=== PATIENT | female | born 1955 | race Caucasian/White ===

== ENCOUNTER → 2019-10-23 13:27 | Outpatient (BNVA) | payer MEDICARE, OTHER, SELFPAY | PROVIDERS: Referring Provider Nurse Practitioner Family; Visit Provider Obstetrics & Gynecology Female Pelvic Medicine and Reconstructive Surgery | DX: Z01.89 Encounter for other specified special examinations (principal) ==

== ENCOUNTER 2019-11-02 05:50 | Day surgery (SDC) | payer MEDICARE, OTHER, SELFPAY ==
[2019-11-01 11:21] VITALS: BMI 23.3
[2019-11-01 13:03] LABS: Basophils # 0.1 10^3/uL (0.0-0.1); Basophils % 0.6 %; Eosinophils # 0.1 10^3/uL (0.0-0.8); Hematocrit 40.7 % (37.0-47.0); Lymphocytes # 1.7 10^3/uL (0.8-4.8); Lymphocytes % 18.4 %; Mean Corpuscular HGB Conc 31.9 g/dL (30.0-36.0); Mean Corpuscular Hemoglobin 30.7 pg (28.0-34.0); Mean Platelet Volume 10.3 fL (7.4-10.4); Monocytes # 0.6 10^3/uL (0.2-0.9); Monocytes % 6.5 %; Neutrophils # 6.6 10^3/uL (1.8-7.7); Neutrophils % 73.3 %; Nucleated Red Blood Cells % 0 %; Platelet Count 336 10^3/cmm (130-400); Red Blood Count 4.24 10^6/uL (4.1-5.3); Red Cell Distribution Width 14.5 % (12.1-15.1)
--- NOTE | 2019-11-01 13:03 | P.ANESASSM_ITS ---
Pre-Anesthetic Assessment Pre-Anesthetic Assessment: Height/Weight: Height 1.65 m Weight 63.503 kg Preop Diagnosis: postmenopausal bleeding Proposed Procedure: Operation Date: 11/02/19 07:00 Proposed Procedures p Hysteroscopy 65187 01292 N95.0(Not Applicable) - Silverio Morse DO s Dilation And Curettage (D&C)(Not Applicable) - Silverio Morse DO Was Beta John taken within 24 hours: N/A Social: Social History: No alcohol and No tobacco Exam: Pre-Anes Outpt Exam: alert, oriented x 3, clear to auscultation bilaterally and regular rate & rhythm Airway: Submandibular: WNL Cervical ROM: WNL MP: 2 Dentition: Full Pulmonary: Pulmonary: None reported CV/HEM: CV/HEM: None reported : : None reported Hepatic: Hepatic: None reported GI: GI: None reported Metabolic: Metabolic: None reported Musc/skel: Comments: Arthritis Neuropsych: Neuropsych: None reported Anesthetic Plan: ASA status: 2 Anesthesia: General Risk of > 500 ml blood loss (7ml/kg in children): No PFSH Anesthesia PFSH: Social History Smoking and tobacco status: never smoked Alcohol intake: never Marital status: Data Anesthesia CBC & Chem 7: 11/01/19 11:40 Other Labs: Laboratory Results - last 48 hr 11/01/19 11:40 WBC 9.0 RBC 4.24 Hgb 13.0 Hct 40.7 MCV 96.0 MCH 30.7 MCHC 31.9 RDW 14.5 Plt Count 336 MPV 10.3 Neut % (Auto) 73.3 Lymph % (Auto) 18.4 [place] % (Auto) 6.5 Eos % (Auto) 1.0 Baso % (Auto) 0.6 Neut # (Auto) 6.6 Lymph # (Auto) 1.7 [place] # (Auto) 0.6 Eos # (Auto) 0.1 Baso # (Auto) 0.1 Nucleated RBC % (auto) 0 Nucleated RBCs # 0.0 Cardiac Studies: No Data to Display
[2019-11-01 13:17] LABS: Anion Gap 14.8 (5-19); Blood Urea Nitrogen 16 mg/dL (8-23); Calcium 9.9 mg/dL (8.5-10.5); Carbon Dioxide 27 mmol/L (22-29); Chloride 103 mmol/L (98-107); Glomerular Filtration Rate 62.6 mL/min (90-130); Glucose 86 mg/dL (65-115); Osmolality Calculated 288 mOsm/kg (285-295); Potassium 3.8 mmol/L (3.5-5.1); Sodium 141 mmol/L (136-145)
[2019-11-02] VITALS (8 sets, daily range): BP systolic 150–184; BP diastolic 79–118; PULSE 56–68; RESP 12–18; TEMP 36.4–37.5; O2SAT 96–100
--- NOTE | 2019-11-02 06:34 | P.ANESUD_ITS ---
Pre-Anesthetic Update Pre-Anesthetic Assessment: Date of Surgery/Procedure: 11/02/19 Preop Rochelle gnosis: postmenopausal bleeding Proposed Procedure: Operation Date: 11/02/19 07:00 Proposed Procedures p Hysteroscopy 04723 10454 N95.0(Not Applicable) - Silverio Morse, DO s Dilation And Curettage (D&C)(Not Applicable) - Silverio Morse, DO Any changes to Pre-Anesthetic Assessment?: No Last Intake: Intake Last Liquid Date 11/01/19 Last Solid Date 11/01/19 Labs Last 48hrs: Laboratory Results - last 48 hr 11/01/19 11/01/19 11:40 11:40 WBC 9.0 RBC 4.24 Hgb 13.0 Hct 40.7 MCV 96.0 MCH 30.7 MCHC 31.9 RDW 14.5 Plt Count 336 MPV 10.3 Neut % (Auto) 73.3 Lymph % (Auto) 18.4 [place] % (Auto) 6.5 Eos % (Auto) 1.0 Baso % (Auto) 0.6 Neut # (Auto) 6.6 Lymph # (Auto) 1.7 [place] # (Auto) 0.6 Eos # (Auto) 0.1 Baso # (Auto) 0.1 Nucleated RBC % (a uto) 0 Nucleated RBCs # 0.0 Sodium 141 Potassium 3.8 Chloride 103 Carbon Dioxide 27 Anion Gap 14.8 BUN 16 Creatinine 0.9 GFR Calculation 62.6 L Glucose 86 Calculated Osmolal ity 288 Calcium 9.9 Vitals: Temperature 99.5 F 11/02/19 06:04 Temperature Source Temporal Artery S can 11/02/19 06:04 Pulse Rate 68 11/02/19 06:04 Pulse Rhythm 11/02/19 06:09 Pulse Strength 3+ Normal 11/02/19 06:09 Respiratory Rate 18 11/02/19 06:04 Blood Pressure 170/118 11/02/19 06:04 Blood Pressure Melanie n 135 11/02/19 06:04 Pulse Oximetry 98 11/02/19 06:04 Oxygen Delivery Me thod 11/02/19 06:09 Exam: Pre-Anes Outpt Exam: alert, oriented x 3, clear to auscultation bilaterally and regular rate & rhythm Other Pertinent Information: Other Pertinent Information: Hypertensive this morning 180/100--isolated incidence according to patient, not taking BP meds. Cardiac Studies: No Data to Display
[2019-11-02] MEDS: lactated ringers 1,000 ML 999 ML IV (06:46)
[2019-11-02] MEDS: CELEcoxib 200 mg Capsule 400 MG PO (06:47)
[2019-11-02] MEDS: gabapentin 300 mg Capsule PO (06:48)
--- NOTE | 2019-11-02 06:53 | P.HPUD_ITS ---
Surgery/Procedure H&P Update DATE OF PROCEDURE: November 02, 2019 DATE H&P PERFORMED: 10/30/19 PREOP DIAGNOSIS: postmenopausal bleeding PLANNED PROCEDURE: Operation Date: 11/02/19 07:00 Proposed Procedures p Hysteroscopy 58430 58372 N95.0(Not Applicable) - DO antione Mckinnon Dilation And Curettage (D&C)(Not Applicable) - Silverio Morse DO
--- NOTE | 2019-11-02 06:53 | W.PM.OPSUD ---
Surgery/Procedure H&P Update DATE OF PROCEDURE: November 02, 2019 DATE H&P PERFORMED: 10/30/19 PREOP DIAGNOSIS: postmenopausal bleeding PLANNED PROCEDURE: Operation Date: 11/02/19 07:00 Proposed Procedures p Hysteroscopy 20200 95300 N95.0(Not Applicable) - DO natione Mckinnon Dilation And Curettage (D&C)(Not Applicable) - Silverio Morse DO
[2019-11-02] MEDS: midazolam 1 mg/mL INJ 2 mL 2 MG IVP (06:55)
--- NOTE | 2019-11-02 07:46 | SUR.PHASEI ---
8605 PATIENT TO PACU AT THIS TIME. RR EVEN AND UNLABORED. ORAL AIRWAY IN PLACE. PATIENT NOTED TO BE SLEEPING.
--- NOTE | 2019-11-02 07:59 | P.OP_ITS ---
Operative Report Date of procedure: November 02, 2019 Pre-op Diagnosis: postmenopausal bleeding Post-op diagnosis: same Post-op Diagnosis: endometrial polyp Post-op Findings: 2 cm endometrial polyp, appears benign. atrophic endometrium Procedure Done: hysperoscopy, diagnostic endometrial polypectomy vian myosure fractional d&C Specimens removed/disposition: ECC Endometrial currettings, endomerial polyp Surgeon: Silverio Morse Principal Account Clerk: Jas Ruffin MS 3 Anesthesia: General Estimated blood loss (mL): 10 IV fluids (mL): 500 Urine output (mL): 250 Complications: none Findings: uterus sounds 7 cm, rretroflexed. benign appearing endometrial polyp from left lateral sidewall. atrophic endometrium Condition: stable Disposition: PACU Brief History: 64-year-old multiparous female with recent history of endometrial bleeding described as light. Admitted for hysteroscopy D&C possible polypectomy. Procedure: Patient was identified counseled taken to the operating room and [facility]. She did receive IV antibiotics for prophylaxis. In the operating room underwent general laryngeal mask anesthesia placed in the dorsolithotomy position for operative hysteroscopy. Exam under anesthesia was performed uterus was noted to be retroflexed small mobile. No adnexal masses noted. Timeout was performed. Perineum vagina prepped and draped in usual manner bladder underwent In-N-Out catheterization for 250 cc of clear urine. Weighted speculum was placed in the vagina cervix was then 5 the anterior lip of the cervix grasped with a tenaculum. ECC was performed and specimen sent. At this time the cervix was gently dilated with Hegar dilators to about 8 mm it was noted to be retroflexed. Initially the diagnostic hysteroscope and using saline distention media hysteroscopy was performed with the above findings. There was an approximate 2 cm benign- appearing polyp from the left lateral sidewall. At this time the mild sure was readied and then using the [place] sure device under direct observation a polyp was removed without difficulty. Photodocumentation was obtained. Once the polyp the been removed the uterine cavity was curettaged with sharp curette minimal tissue recovered sent for specimen. At this point time all instruments removed patient was allowed to recover awaken sent to the recovery room good condition she will be discharged today was to be sent home on Tylenol and ibuprofen as needed for discomfort supplemented with oxycodone as needed. Plan follow-up with me in 2 weeks. Is of note patient did have elevated blood pressures noted preop and an episode of bigeminy in the operating room we will have her follow-up with her PCP to further evaluate cardiac status. At this time pathology report is pending we will follow-up with patient. Fluid absorption proximally 150 cc measured. No complication
--- NOTE | 2019-11-02 08:01 | SUR.PHASEI ---
0755 ORAL AIRWAY REMOVED.
--- NOTE | 2019-11-02 08:09 | SUR.PHASEI ---
0806 PATIENT TO OPS AT THIS TIME. NO DISTRESS. MILD PAIN
== END 2019-11-02 09:05 | disposition home or self-care (01) ==
LOC: OR 13:55
PROVIDERS: PCP Nurse Practitioner Family; Visit Provider Obstetrics & Gynecology Female Pelvic Medicine and Reconstructive Surgery
PROC: 0UJD8ZZ Inspection of Uterus and Cervix, Via Natural or Artificial Opening Endoscopic (ICD-10-PCS; CPT 58555; principal; 2019-11-02 07:00)
PROC: (CPT 58120; 2019-11-02 07:00)
PROC: 0UDB8ZZ Extraction of Endometrium, Via Natural or Artificial Opening Endoscopic (ICD-10-PCS; CPT 58558; 2019-11-02 07:00)
DX: N95.0 Postmenopausal bleeding (principal); N84.0 Polyp of corpus uteri; Z82.49 Family history of ischemic heart disease and other diseases of the circulatory system
CPT/HCPCS: 58558; 12345; 80048; 85025; 88305; 96365; 96374; J0131; J0690; J1100; J2001; J2250; J2370; J2405; J2704; J3010

== ENCOUNTER → 2021-06-20 10:40 | Outpatient (BNVA) | payer MEDICARE, OTHER, SELFPAY | PROVIDERS: PCP Nurse Practitioner Family; Visit Provider Otolaryngology | DX: K13.79 Other lesions of oral mucosa (principal) | CPT/HCPCS: 88304; 88307 ==

== ENCOUNTER → 2024-05-23 08:02 | Outpatient (BNVA) | payer MEDICARE, OTHER, SELFPAY | PROVIDERS: PCP Nurse Practitioner Family; Visit Provider Specialist | DX: I63.89 Other cerebral infarction (principal); Z79.01 Long term (current) use of anticoagulants | CPT/HCPCS: 96116; 99204; 99205 ==

== ENCOUNTER 2024-06-14 08:34 | Outpatient (CLI) | payer MEDICARE, OTHER, SELFPAY ==
--- NOTE | 2024-06-14 09:15 | MR_ITS ---
WS: [id number] MRI BRAIN WITHOUT CONTRAST HISTORY: I63.89 - Other cerebral infarction COMPARISON: None available. TECHNIQUE: Diffusion imaging, multiplanar T1, T2 and FLAIR imaging obtained. Acute diffusion abnormality in the LEFT natalie consistent with an acute stroke. There is an additional tiny focus of increased signal on the diffusion imaging in the subcortical medial RIGHT frontal white matter which is likely an acute infarct also. There does appear to be low signal on the ADC map in t his region. Otherwise there is advanced patchy and confluent white matter disease throughout the cerebrum. Small lacunar infarct in the LEFT connor radiata and external capsule. No hemorrhage. Mild diffuse atrophy. No significant hippocampal atrophy. No large territory infarct. No midline shift or mass effect. Ventricles and extra-axial spaces are normal. No inferior displacement of cerebellar tonsils. The sella turcica and pituitary gland are unremarkabl e. Dural venous sinuses and [place] demonstrate no abnormality on this unenhanced studies. Paranasal sinuses: Clear. Mastoid air cells: Normal. Calvarium and scalp: Intact. MR/MR head wo con* [id number] IMPRESSION: 1. Acute LEFT natalie lacunar infarct without hemorrhage. 2. Additional very tiny acute infarct in the RIGHT medial frontal subcortical white matter. 3. Advanced chronic small vessel ischemic disease throughout the white matter with a few small scattered lacunar infarcts. 4. Mild diffuse atrophy.
--- NOTE | 2024-06-14 10:00 | MR_ITS ---
WS: [id number] MRA ANGIOGRAPHY [place] HISTORY: I63.89 - Other cerebral infarction COMPARISON: None available. TECHNIQUE: 3-D MR angiography is performed of the [place] of [place]. All images are reviewed including source images. Very small caliber distal LEFT vertebral artery but it does appear to be patent. Normal dominant RIGH T vertebral artery. Very minimal narrowing of the central basilar artery. Normal intracranial carotid arteries. Middle cerebral arteries are patent. Smaller caliber of vessels involving the LEFT M2 and M3 segments. There is no occlusion. Anterior cerebral arteries are normal caliber. No aneurysm. MR/MR angio head wo con [id number] IMPRESSION: 1. No intracranial aneurysms. 2. Very small caliber but patent distal LEFT vertebral artery. 3. Smaller caliber LEFT M2 and M3 segments but they are patent. Mild paucity o f vessels in the distal LEFT MCA territory.
== END 2024-06-14 08:35 | disposition home or self-care (01) ==
LOC: RAD 08:36
PROVIDERS: PCP Nurse Practitioner Family; Visit Provider Specialist
DX: I63.81 Other cerebral infarction due to occlusion or stenosis of small artery (principal); I61.0 Nontraumatic intracerebral hemorrhage in hemisphere, subcortical; I67.82 Cerebral ischemia
CPT/HCPCS: 70544; 70551

== ENCOUNTER 2024-07-14 09:35 | Outpatient (CLI) | payer MEDICARE, OTHER, SELFPAY ==
--- NOTE | 2024-07-14 10:00 | USCV_ITS ---
Nadia Mendez Age: 69 Gender: F : 1955 Exam Date: 07/14/2024 10:07 Ordering Phys: Milana Santillan MD Technologist: CT [place] [facility] [place] Indication: BP: 186 / 118 HR: 98 Rhythm: Sinus Technical Quality: Adequate MEASUREMENTS (Male / Female) Normal Values 2D ECHO LVOT Diameter 2.0 cm LV Ejection Fraction MOD 4C 61.3 % LV Ejection Fraction MOD 2C 60.5 % LV Ejection Fraction 2C AL 61.6 % LA Diameter 2.9 cm RA Systolic Volume 4C AL 30.0 ml RA Systolic Volume 4C MOD 29.6 ml LA Sys Volume AL 43.4 cm cubed LA Sys Volume Index AL 25.7 cm cubed/m squared Aorta at Sinotubular Diameter 2.3 cm IVC Diameter 1.6 cm M-MODE LA Ao Ratio MM 1.4 AV Cusp Separation MM 2.1 cm DOPPLER AV Peak Velocity 154.0 cm/s AV Area Cont Eq vti 2.5 cm squared AV Area Cont Eq pk 1.9 cm squared MV Peak Velocity 114.0 cm/s MV Area PHT 2.8 cm squared Mitral E to A Ratio 0.8 TV Peak Velocity 155.0 cm/s TR Peak Velocity 178.0 cm/s TR Peak Gradient 12.7 mmHg TV Peak E Velocity 75.0 cm/s Right Atrial Pressure 3.0 mmHg Pulmonary Artery Systolic Pressu 15.7 mmHg PV Peak Velocity 98.0 cm/s FINDINGS Left Ventricle Left ventricle is normal in size. LV systolic function is normal with EF of 55 to 60%. No regional wall motion abnormalities are seen. Grade 1 diastolic dysfunction Right Ventricle Normal in size and function. Right Atrium Normal in size. Left Atrium Normal in size. Mitral Valve Mild mitral annular calcification. Mild mitral regurgitation. Aortic Valve Structurally normal aortic valve. No significant stenosis or regurgitation. Tricuspid Valve Mild tricuspid regurgitation. Pulmonary artery systolic pressure is normal. Pulmonic Valve Mild pulmonic regurgitation. Pericardium Normal Aorta Normal in size IVC Appears to be normal. CONCLUSIONS LV systolic function is normal with EF of 55 to 60%. Grade 1 diastolic dysfunction. Mild mitral regurgitation. Mild tricuspid regurgitation Mild pulmonic regurgitation No comparison studies are available. Collins Sawyer MD (Electronically Signed) Final Date: 16 July 2024 14:12 S
== END 2024-07-14 09:36 | disposition home or self-care (01) ==
LOC: RAD 09:36
PROVIDERS: PCP Nurse Practitioner Family; Visit Provider Specialist
DX: I63.89 Other cerebral infarction (principal); I50.30 Unspecified diastolic (congestive) heart failure
CPT/HCPCS: 93306

== ENCOUNTER → 2024-08-31 07:57 | Outpatient (BNVA) | payer MEDICARE, OTHER, SELFPAY | PROVIDERS: PCP Nurse Practitioner Family; Visit Provider Specialist | DX: I63.89 Other cerebral infarction (principal); R03.0 Elevated blood-pressure reading, without diagnosis of hypertension; I20.0 Unstable angina; G37.9 Demyelinating disease of central nervous system, unspecified; K13.4 Granuloma and granuloma-like lesions of oral mucosa; M19.90 Unspecified osteoarthritis, unspecified site | CPT/HCPCS: 99215 ==

== ENCOUNTER → 2024-09-06 08:00 | Outpatient (BNVA) | payer MEDICARE, OTHER, SELFPAY | PROVIDERS: PCP Nurse Practitioner Family; Visit Provider Specialist | DX: I63.89 Other cerebral infarction (principal); G37.9 Demyelinating disease of central nervous system, unspecified; R03.0 Elevated blood-pressure reading, without diagnosis of hypertension; I20.0 Unstable angina; K13.4 Granuloma and granuloma-like lesions of oral mucosa; M19.90 Unspecified osteoarthritis, unspecified site | CPT/HCPCS: 36415; 62270; 80503; 82040; 82042; 82784; 82945; 83916; 84157; 86592; 86617; 87070; 87075; 87205; 89050; 99213 ==

== ENCOUNTER 2024-09-07 08:47 | Outpatient (CLI) | payer MEDICARE, OTHER, SELFPAY ==
--- NOTE | 2024-09-07 | ECG_ITS ---
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 The perfusion scan will be documented separately. DATA: Baseline heart rate was 102 beats per minute. Baseline blood pressure was 134/100 millimeters of mercury. Target heart rate was 149. Maximum heart rate achieved was 115. which was 77 of the predicted target heart rate. Maximum blood pressure was 134/100 millimeters of mercury. The reason for ending the test was completion of the protocol. The patient did not experience any symptoms. ELECTROCARDIOGRAM: BASELINE: Sinus rhythm. Normal axis. 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 No arrhythmia noted. EXERCISE: After Lexiscan injection, inferolateral moderate ST depression suggestive of ischemia noted Recovery: Inferolateral ST depression persisted 10 minutes CONCLUSION: Please note due to baseline abnormality of the EKG specificity and sensitivity of the EKG portion of LexiScan MIBI stress test will be low 1. EKG is suggestive of ischemia 2. Lexiscan injection unremarkable. 3. Lexiscan will be reported separately Electronically Signed On 09-25-2024 22:17:38 NATIONAL BUSINESS DIRECTOR by DUNG SEN [email or web address]
[2024-09-07 09:03] VITALS: BMI 24.4
--- NOTE | 2024-09-07 10:03 | NMCV_ITS ---
NM oren perf SPECT r/s* [id number] Nadia Mendez Age: 69 Gender: F : 1955 Exam Date: 09/07/2024 10:11 Ordering Phys: Milana Santillan MD Technologist: RADHA Coto Exam Location: [facility] Indications: cp STRESS TEST [facility] IMAGE PROTOCOL Rest/Stress 1 Radiopharmaceutical Dose (mCi) Administration Site Administered by Rest: Tc-99m 10.9 IV Vanessa Menard, SYSTEMS TRAINER Sestamibi Stress:Tc-99m 33 IV Vanessa Garciae, SYSTEMS TRAINER Sestamibi Rest: 07-Sep-2024 60 Discovery 630 Stress: 07-Sep-2024 30 Discovery 630 Images obtained in supine and prone position. Supine position only as patient was unable to lay prone. SPECT RESULTS Technical Quality: Good Raw Data Analysis: Normal Image Corrections: No attenuation or motion correction applied Summed Stress Score: 23 Summed Rest Score: 20 Summed Difference Score: 4 PERFUSION FINDINGS Large area of fixed perfusion defect noted in mid to distal anterior, basal to mid inferior and basal to distal inferoseptal wall suggestive of old myocardial infarction versus scarring. No new ischemia noted. FUNCTIONAL RESULTS (calculated via Gated SPECT) Stress Image LV EF (%): 11 Stress EDV (mL):222 TID: 1.12 Stress ESV (mL):197 FUNCTIONAL FINDINGS: Severely depressed left ventricular ejection fraction, mid to distal anterior apical and inferior wall akinesis. There is severely dilated left ventricle. Left ventricle is severely dilated. IMPRESSIONS Large area of fixed perfusion defect noted in mid to distal anterior, basal to mid inferior and basal to distal inferoseptal wall suggestive of old myocardial infarction versus scarring. No new ischemia noted. Dayo Garcia MD (Electronically Signed) Final Date: 07 September 2024 15:49 S
[2024-09-07] MEDS: regadenoson 0.4 Mg/5 ml Syringe IVP (10:53)
[2024-09-07] MEDS: aminophylline 25 mg/mL SDV 20 mL IVP (11:07)
[2024-09-07 11:10] VITALS: BP 116/60; PULSE 95
== END 2024-09-07 08:48 | disposition home or self-care (01) ==
LOC: CDL 08:48
PROVIDERS: PCP Nurse Practitioner Family; Visit Provider Specialist
DX: R07.9 Chest pain, unspecified (principal); I51.7 Cardiomegaly; R93.1 Abnormal findings on diagnostic imaging of heart and coronary circulation
CPT/HCPCS: 36415; 78452; 93017; 96374; 96375; A9500; J0280; J2785

== ENCOUNTER 2024-09-08 14:01 | Inpatient (IN) | payer MEDICARE, OTHER, SELFPAY ==
[2024-09-08] VITALS (11 sets, daily range): BP systolic 110–134; BP diastolic 75–95; PULSE 93–104; RESP 17–29; TEMP 36.8–36.9; O2SAT 92–94; BMI 25.4; BMI 26.1
--- NOTE | 2024-09-08 14:06 | ECG_ITS ---
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
--- NOTE | 2024-09-08 16:16 | XRR_ITS ---
PROCEDURE INFORMATION: Exam: XR Chest Exam date and time: 09/08/2024 6:03 PM Age: 69 years old Clinical indication: Shortness of breath TECHNIQUE: Imaging protocol: Radiologic exam of the chest. Views: 1 view. COMPARISON: No relevant prior studies available. FINDINGS: Lungs: Mild bibasilar atelectasis. Pleural spaces: Small to moderate left and small right pleural effusions. No pneumothorax. Heart/Mediastinum: Partially obscured cardiac silhouette. Vasculature: Aortic arch atherosclerotic calcification. Bones/joints: Degenerative change along the spine and acromioclavicular joints. XR/XR chest 1V portable [id number] IMPRESSION: Qlly-iv-aqdhxlcw bdke-ymleggn-kmgk-right pleural effusions.
[2024-09-08 17:34] LABS: Basophils % 0.2 %; Eosinophils % 0.2 %; Hematocrit 39.2 % (36-47); Lymphocytes # 1.5 10^3/uL (0.8-4.8); Lymphocytes % 11.9 %; Mean Corpuscular HGB Conc 33.7 g/dL (30-55); Mean Corpuscular Hemoglobin 31.1 pg (27-33); Mean Corpuscular Volume 92.5 fl (85-98); Monocytes # 0.7 10^3/uL (0.2-0.9); Monocytes % 5.1 %; Neutrophils # 10.38 10^3/uL (1.8-7.7); Neutrophils % 82.3 %; Nucleated Red Blood Cells % 0 %; Platelet Count 326 10^3/cmm (157-399); Red Blood Count 4.24 10^6/uL (3.85-5.65); Red Cell Distribution Width 14.6 % (12.1-15.1); White Blood Count 12.63 10^3/uL (3.29-11.43)
--- NOTE | 2024-09-08 17:37 | ECG_ITS ---
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: : 1955 Requested By: Hiwot Burns Order Number: [id number] Reading MD: DUNG SEN Measurements Intervals [place] Rate: 102 P: 8 CT: 163 QRS: -38 QRSD: 99 T: 156 QT: 342 QTc: 446 Interpretive Statements SINUS TACHYCARDIA LEFT AXIS DEVIATION [QRS AXIS < -30] LEFT VENTRICULAR HYPERTROPHY AND ST-T CHANGE [VOLTAGE CRITERIA PLUS ST/T ABNORMALITY] POSSIBLE ANTERIOR MYOCARDIAL INFARCTION , OF INDETERMINATE AGE [30 ms Q WAVE IN V3/V4, OR R < 0.2 mV IN V4] Compared to ECG 09/08/2024 14:06:55 Left ventricular hypertrophy now present ST (T wave) deviation now present Myocardial infarct finding still present Electronically Signed On 09-08-2024 23:19:25 MOLDING UTILITY WORKER by DUNG SEN [email or web address]
--- NOTE | 2024-09-08 17:37 | W.ED.SOB ---
HPI - SOB/Dyspnea General: Chief Complaint: Shortness of Breath/Dyspnea Stated Complaint: shortness of breath /sent by dr. Isela Xavier / Time Seen by Provider: 09/08/24 17:34 History of Present Illness: HPI Narrative: 69-year-old female with history of stroke in the past who stopped taking her medications because they made her feel bad. She says she would rather take homeopathic meds. However over the last month or so she has had increasing shortness of breath. Increasing orthopnea. She reports abdominal swelling without abdominal pain. She has been having tightness in her chest. She has had some cough. But no fevers. No altered mental status. No focal motor deficits. Related Data Home Medications Medication Instructions Recorded Confirmed ascorbic acid (vitamin C) 500 mg 500 mg PO DAILY 10/23/19 09/06/24 capsule cholecalciferol (vitamin D3) 250 20,000 unit PO DAILY 10/23/19 09/06/24 mcg (10,000 unit) capsule cyanocobalamin (vitamin B-12) 5,000 mcg PO DAILY 10/23/19 09/06/24 5,000 mcg capsule lactobacillus combination no.4 3 3,000 mmu cells PO DAILY 11/01/19 09/06/24 billion cell capsule (Probiotic) HRT-compounted sublingual 05/23/24 09/06/24 Vitamin K2 PO 08/31/24 09/06/24 vitamin E mixed PO 08/31/24 09/06/24 Allergies Allergy/AdvReac Type Severity Reaction Status Date / Time No Known Allergies Allergy Verified 09/07/24 09:04 Review of Systems Narrative: Constitutional symptoms: Negative except as documented in HPI. Skin symptoms: Negative except as documented in HPI. Eye symptoms: Negative except as documented in HPI. ENMT symptoms: Negative except as documented in HPI. Respiratory symptoms: Negative except as documented in HPI. Cardiovascular symptoms: Negative except as documented in HPI. Gastrointestinal symptoms: Negative except as documented in HPI. Genitourinary symptoms: Negative except as documented in HPI. Musculoskeletal symptoms: Negative except as documented in HPI. Neurologic symptoms: Negative except as documented in HPI. Psychiatric symptoms: Negative except as documented in HPI. Endocrine symptoms: Negative except as documented in HPI. 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 Skin: Warm, dry. Head: Normocephalic, atraumatic. Neck: Supple, trachea midline. Eye: Extraocular movements are intact. Ears, nose, mouth and throat: mucosa moist. Cardiovascular: Regular, Normal peripheral perfusion. Respiratory: Lungs are clear to auscultation, respirations are non-labored, breath sounds are equal, Symmetrical chest wall expansion. Gastrointestinal: Soft, Nontender, Non distended Musculoskeletal: Normal ROM, no deformity. Neurological: Alert and oriented, No focal neurological deficit observed. Psychiatric: Cooperative, appropriate mood & affect. Course Vital Signs: Vital signs: Vital Signs Temperature 98.4 F 09/08/24 14:10 Pulse Rate 98 09/08/24 19:18 Respiratory Rate 17 09/08/24 14:10 Blood Pressure 127/95 09/08/24 19:18 Pulse Oximetry 92 09/08/24 19:18 Oxygen Delivery Me thod Room Air 09/08/24 19:18 MDM - SOB/Dyspnea Medical Decision Making Differential diagnosis for patient with shortness of breath includes but is not limited to and based on the above HPI, review of systems and physical exam: Pneumonia. Bronchitis. Asthma or COPD with acute exacerbation. Acute coronary syndrome / [place]. Pulmonary embolism. Anxiety. Congestive heart failure. Viral infections including influenza and Covid-19. Atrial fibrillation. Anxiety. Pleural effusion. Pneumothorax. Orders placed to evaluate differential diagnosis based on the above differential, HPI and physical exam EKG: Time 1737. Rate 102. Sinus tachycardia. Diffuse ST elevation without depression. LVH. no ectopy, normal ID & QRS intervals, This was reviewed and interpreted by myself the ER physician at 1740. I was concerned with this EKG so I have sent it to the vice president & general manager [employer] [place] on-call Dr. Garcia. He recommends continued workup. Lab Review: Laboratory results were reviewed and interpreted by myself the emergency room physician. Mild leukocytosis. No anemia. proBNP is quite elevated. Initial troponin is almost 1000. Chest x-ray: Cardiomegaly. Pulmonary edema. Pleural effusions. This was reviewed and interpreted by myself the emergency room physician. I also reviewed the radiology report. I reviewed the patient's medical record. Consultation: After results of a troponin of [address] Garcia again. He recommends diuresis with 80 mg of IV Lasix. With continued twice daily dosing. He recommends heparin drip. No Plavix at this time. Also recommends beta-virgilio. Likely low-dose metoprolol. Reexamination: Patient is not requiring oxygen. Currently not have any chest pain. No altered mental status. No focal motor deficits. No increased work of breathing while at rest. Consultation: I spoke with Dr. Bridges who is on-call for the hospitalist service who agrees to admission. Assessment and plan: Non-ST elevation myocardial infarction New onset congestive heart failure Pulmonary edema ?Heparin and heparin drip started. 80 mg IV Lasix. -I discussed the patient with the hospitalist on-call who is admitting the patient. - Discussed findings and plan with patient. Answered any questions. - All laboratory values were reviewed and interpreted personally by myself, the ER physician - All imaging was reviewed and interpreted personally by myself, the ER physician. - Evaluation and treatment of this problem were appropriate in the emergency setting Lab Data 09/08/24 17:23 09/08/24 17:23 Labs/Radiology: Radiology Impressions Chest X-Ray 09/08/24 16:16 IMPRESSION: Cmar-oc-gftedmaw nqsm-fnsgogu-wbzy-right pleural effusions. Laboratory Results WBC 12.63 10^3/uL (3.29-11.43) H 09/08/24 17: RBC 4.24 10^6/uL (3.85-5.65) 09/08/24 17:23 Hgb 13.20 g/dL (11.27-16.99) 09/08/24 17:23 Hct 39.2 % (36-47) 09/08/24 17: MCV 92.5 fl (85-98) 09/08/24 17: MCH 31.1 pg (27-33) 09/08/24 17: MCHC 33.7 g/dL (30-55) 09/08/24: RDW 14.6 % (12.1-15.1) 09/08/24: Plt Count 326 10^3/cmm (157-399) 09/08/24: MPV 10.0 fL (7.4-10.4) 09/08/24: Neut % (Auto) 82.3 % 09/08/24: Lymph % (Auto) 11.9 % 09/08/24: [place] % (Auto) 5.1 % 09/08/24: Eos % (Auto) 0.2 % 09/08/24: Baso % (Auto) 0.2 % 09/08/24 Neut # (Auto) 10.38 10^3/uL (1.8-7.7) H 09/08/24: Lymph # (Auto) 1.5 10^3/uL (0.8-4.8) 09/08/24: [place] # (Auto) 0.7 10^3/uL (0.2-0.9) 09/08/24: Eos # (Auto) 0.0 10^3/uL (0.0-0.8) 09/08/24: Baso # (Auto) 0.0 10^3/uL (0.0-0.1) 09/08/24: Nucleated RBC % (auto) 0 % 09/08/24 Nucleated RBCs # 0.0 /100WBC 09/08/24: Sodium 129 mmol/L (136-145) L 09/08/24: Potassium 4.5 mmol/L (3.5-5.1) 09/08/24: Chloride 97 mmol/L (98-107) L 09/08/24: Carbon Dioxide 20 mmol/L (22-29) L 09/08/24: Anion Gap 16.5 (5-19) 09/08/24: BUN 15 mg/dL (8-23) 09/08/24: Creatinine 0.7 mg/dL (0.5-0.9) 09/08/24 GFR Calculation Not Reportable 01/17/25 17:23 Glucose 125 mg/dL (65-115) H 09/08/24 17:23 Estimat Average Glucose 114 09/08/24 17: Hemoglobin A1c 5.6 % (4.0-6.0) 09/08/24 17: Calculated Osmolality 270 mOsm/kg (285-295) L 09/08/24 17: Lactic Acid 1.1 mmol/L (0.5-2.2) 09/08/24: Calcium 9.5 mg/dL (8.5-10.5) 09/08/24: Total Bilirubin 0.5 mg/dL (0.15-1.2) 09/08/24: AST 64 U/L (0-32) H 09/08/24: ALT 41 U/L (0-33) H 09/08/24 17: Alkaline Phosphatase 85 U/L (35-105) 09/08/24: Troponin T Baseline 994 ng/L (0-10) H* 09/08/24 17:23 C-Reactive Protein 17.8 mg/L (0.0-4.9) H 09/08/24 17: NT-Pro-B Natriuret Pep 44417 pg/mL (0-125) H 09/08/24 17: Total Protein 6.5 g/dL (6.6-8.7) L 09/08/24: Albumin 4.2 g/dL (3.5-5.2) 09/08/24: Globulin 2.3 g/dL (1.3-4.6) 09/08/24 17:23 Triglycerides 129 mg/dL (0-150) 09/08/24 17: Cholesterol 227 mg/dL (0-200) H 09/08/24 17: LDL Cholesterol, Calc 140 mg/dL (50-129) H 09/08/24 17: HDL Cholesterol 61 mg/dL (60-100) 09/08/24 17: LDL/HDL Ratio 2.30 RATIO (0.00-3.22) 09/08/24 17: Cholesterol/HDL Ratio 3.72 mg/dL (0.0-4.40) 09/08/24:23 Procalcitonin 0.04 ng/mL (0-0.5) 09/08/24 17:23 TSH 2.82 uIU/mL (0.27-4.20) 09/08/24 17:23 All radiology interpretation(s) finalized by discharge Discharge Plan Discharge Patient Disposition: Admitted As Inpatient Admit Provider: Darci Pérez Clinical Impression: Non-ST elevated myocardial infarction, Elevated troponin, New onset of congestive heart failure Condition: Stable Coding Level of Care Code ED Production Officer for Dusty Montgomery
[2024-09-08 18:04] LABS: Lactic Sepsis W/Reflex 1.1 mmol/L (0.5-2.2)
[2024-09-08 18:06] LABS: Alanine Aminotransferase 41 U/L (0-33); Albumin Level 4.2 g/dL (3.5-5.2); Alkaline Phosphatase 85 U/L (35-105); Anion Gap 16.5 (5-19); Aspartate Amino Transferase 64 U/L (0-32); Blood Urea Nitrogen 15 mg/dL (8-23); C Reactive Protein 17.8 mg/L (0.0-4.9); Calcium 9.5 mg/dL (8.5-10.5); Carbon Dioxide 20 mmol/L (22-29); Chloride 97 mmol/L (98-107); Creatinine Clr Calc Pharmacy 63.0895; Globulin 2.3 g/dL (1.3-4.6); Glucose 125 mg/dL (65-115); NT Pro B Type Natriuretic Pept 16143 pg/mL (0-125); Osmolality Calculated 270 mOsm/kg (285-295); Potassium 4.5 mmol/L (3.5-5.1); Sodium 129 mmol/L (136-145); Total Bilirubin 0.5 mg/dL (0.15-1.2); Total Protein 6.5 g/dL (6.6-8.7)
[2024-09-08 18:08] LABS: Troponin(5th) Baseline 994 ng/L (0-10)
[2024-09-08 18:46] LABS: Procalcitonin 0.04 ng/mL (0-0.5)
--- NOTE | 2024-09-08 18:47 | P.HP_ITS ---
Providers/Chief Complaint 2 Primary Care Provider: Gabriela Moya Chief Complaint: shortness of breath /sent by dr. Isela Xavier / History of Present Illness Nadia Mendez is a 69 year old female who with a past medical history of central retinal artery occlusion, who presents [facility] due to chest discomfort, shortness of breath for the last month. Currently patient is alert oriented x 3, following all commands, she is resting comfortably on room air, no active chest pain but does report shortness of breath. She tells me that over the last month, she has had progressive increasing shortness of breath, shortness of breath with exertion now at rest, orthopnea, paroxysmal nocturnal dyspnea, anterior chest discomfort, no nausea, no vomiting, no fevers, no chills does have a cough, some congestion, no lightheadedness, no dizziness, she denies a history of CAD, no family history of CAD, she stopped taking her aspirin a month ago and she looked up side effects of aspirin and she was worried that it was causing her shortness of breath. Patient was found to have a troponin of 994 in the emergency room, BNP 16 143, EKG was reviewed with cardiology by ER provider, no acute intervention, plan on diuresis Review of Systems 2 Const: Denies: fever(s) or chills Card: Reports: chest pain Resp: Reports: dyspnea GI: Denies: abdominal pain : Denies: flank pain Medications/Allergies Home Medications Medication Instructions Recorded Confirmed Last Taken Type ascorbic acid (vitamin C) 500 mg 500 mg PO DAILY 10/23/19 09/06/24 10/31/19 History capsule cholecalciferol (vitamin D3) 250 20,000 unit PO DAILY 10/23/19 09/06/24 10/31/19 History mcg (10,000 unit) capsule cyanocobalamin (vitamin B-12) 5,000 mcg PO DAILY 10/23/19 09/06/24 10/31/19 History 5,000 mcg capsule lactobacillus combination no.4 3 3,000 mmu cells PO DAILY 11/01/19 09/06/24 10/31/19 History billion cell capsule (Probiotic) HRT-compounted sublingual 05/23/24 09/06/24 Unknown History Vitamin K2 PO 08/31/24 09/06/24 Unknown History vitamin E mixed PO 08/31/24 09/06/24 Unknown History Allergies Allergy/AdvReac Type Severity Reaction Status Date / Time No Known Allergies Allergy Verified 09/07/24 09:04 PFSH Acute 2 PFSH: Surgical History History of breast biopsy 1995 Benign History of delivery History of tonsillectomy Family History Mother Hyperlipidemia Hypertension Vertigo Social History Smoking and tobacco/nicotine status: never used tobacco/nicotine Alcohol intake: never Substance/Drug Use: never 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 Vital Signs Temp 98.4 F 09/08/24 14:10 Pulse 101 H 09/08/24 17:41 Resp 17 09/08/24 14:10 BP 121/75 09/08/24 17:41 Pulse Ox 94 09/08/24 17:41 O2 Del Method Room Air 09/08/24 17:41 Weight last 48 hrs Weight 69.4 kg Physical Exam 2 Const: COMMON NORMALS: no acute distress and patient oriented x3 HENMT: COMMON NORMALS: normocephalic HEAD & SCALP: normocephalic Eye: COMMON NORMALS: Equal, round and reactive pupils present Neck/C-Spine: COMMON NORMALS: no JVD Resp: COMMON NORMALS: normal respiratory effort, No retractions and No use of accessory muscles AUSCULTATION: wheezes Cardio: COMMON NORMALS: no JVD, regular rate, regular rhythm, S1 normal heart sound present and S2 normal heart sound present RATE: regular rate RHYTHM: regular rhythm HEART SOUNDS: S1 normal heart sound present and S2 normal heart sound present GI: COMMON NORMALS: Normal to inspection, nondistended, normoactive bowel sounds present, Soft to palpation and non-tender Extremity: COMMON NORMALS: no calf tenderness and no pedal edema Neuro: COMMON NORMALS: patient oriented x3, CN's II-XII intact bilaterally and moves all extremities Psych: COMMON NORMALS: mental status grossly normal Data 09/08/24 17:23 09/08/24 17:23 Micro: Microbiology 09/08/24 17:25 Blood Culture - Preliminary Blood SPECIMEN COLLECTED 09/08/24 17:23 Blood Culture - Preliminary Blood SPECIMEN COLLECTED A&P Assessment and plan (1) NSTEMI (non-ST elevated myocardial infarction): (2) Acute systolic CHF (congestive heart failure): Plan NSTEMI, with acute systolic CHF -Complaints of chest pain, shortness of breath -Concerns for completed infarct versus NSTEMI Stress test September 07, 2024 IMPRESSIONS Large area of fixed perfusion defect noted in mid to distal anterior, basal to mid inferior and basal to distal inferoseptal wall suggestive of old myocardial infarction versus scarring. No new ischemia noted. -Troponin 994, -BNP 16 143 -EKG nonspecific ST-T wave changes in anterior leads, sinus tachycardia Plan -Monitor in cardiac stepdown unit closely -Lasix 80 mg in the emergency room -Continue Lasix 40 IV twice daily -Aspirin 325 followed by 81 mg daily -Atorvastatin 40 mg daily -Coreg 3.125 twice daily -Serial EKGs, short troponins, telemetry monitoring -Monitor for chest pain -Heparin drip -Monitor urine output, monitor creatinine, telemetry monitoring -I cannot see bilateral lung bases on the chest x-ray, does have a cough does have leukocytosis for now I will cover with broad-spectrum antibiotic therapy Rocephin azithromycin for concerns for pneumonia, follow CRP, Pro-Kris, respiratory viral panel, blood culture -Spoke to cardiology, plan on IV diuresis, consider cardiac catheterization in the near future -Spoke to ER provider -Spoke to patient's family, daughters -Full code -Heparin drip for DVT prophylaxis Transaminitis, etiology unclear, monitor Attestations 2 Medical Necessity Statement*: Patient requires hospitalization, inpatient, greater than 2 midnights for NSTEMI, acute CHF concerns for pneumonia Diagnoses NSTEMI (non-ST elevated myocardial infarction) I21.4 Acute systolic CHF (congestive heart failure) I50.21
[2024-09-08] MEDS: FUROsemide 10 mg/mL SDV 4mL 80 MG IVP (19:01)
[2024-09-08] MEDS: pantoprazole 40 mg SDV IVP (19:02)
[2024-09-08] MEDS: heparin 5,000 unit/mL INJ 1 mL IVP (19:03)
[2024-09-08 19:08] LABS: Estmated Average Glucose 114; Hemoglobin A1C 5.6 % (4.0-6.0)
[2024-09-08] MEDS: heparin drip 25,000 UNIT/500 ML PREMIX 19.43 UNIT IV (19:12)
[2024-09-08] MEDS: aspirin 325 mg EC Tablet PO (19:13)
[2024-09-08 19:41] LABS: Chol HDL Ratio 3.72 mg/dL (0.0-4.40); Cholesterol 227 mg/dL (0-200); HDL Cholesterol 61 mg/dL (60-100); LDL Cholesterol Calculated 140 mg/dL (50-129); Thyroid Stimulating Hormone 2.82 uIU/mL (0.27-4.20); Triglycerides 129 mg/dL (0-150)
[2024-09-08 20:18] LABS: Adenovirus Not Detected (NOT DETECT); Chlamydia Pneumoniae Not Detected (NOT DETECT); Coronavirus 229E,HKU1,NL63,OC4 Not Detected (NOT DETECT); Human Metapneumovirus Not Detected (NOT DETECT); Human Rhinovirus/Enterovirus Not Detected (NOT DETECT); Influenza A Not Detected (NOT DETECT); Influenza A H1 Not Detected (NOT DETECT); Influenza A H1-2009 Not Detected (NOT DETECT); Influenza A H3 Not Detected (NOT DETECT); Influenza B Not Detected (NOT DETECT); Mycoplasma Pneumoniae Not Detected (NOT DETECT); Parainfluenza Virus Type 1 Not Detected (NOT DETECT); Parainfluenza Virus Type 2 Not Detected (NOT DETECT); Parainfluenza Virus Type 3 Not Detected (NOT DETECT); Parainfluenza Virus Type 4 Not Detected (NOT DETECT); Respiratory Syncytial Virus A Not Detected (NOT DETECT); Respiratory Syncytial Virus B Not Detected (NOT DETECT); SARS-COV-2 Not Detected (NOT DETECT)
[2024-09-08 20:30] LABS: Troponin 5 2HR 1044 ng/L (0-10); Troponin 5 2HR Delta 50 ABS# (0-10)
[2024-09-08 20:37] LABS: Bilirubin Urine Negative (Negative); Blood Urine Negative (Negative); Glucose Urine UA Negative (Normal); Ketones Urine Negative (Negative); Leukocyte Esterase Urine Negative (Negative); Nitrate Urine Negative (Negative); Protein Urine Negative (Negative); Specific Gravity, Urine 1.005 (1.005-1.030); Urine Appearance Clear (CLEAR); Urine Color Yellow (Yellow); Urobilinogen Urine 0.2 mg/dL (Negative); pH Urine 5.5 (5-7)
[2024-09-08 20:42] LABS: Add Urine Microscopic? YES; Bacteria Urine None Seen /hpf; Hyaline Casts Urine 1.21 /lpf; RBC Urine 0-2 /hpf (0-2); Squamous Epithelial Cell Urine 0-5 /hpf (0-5); WBC Urine 0-5 /hpf (0-5)
[2024-09-08] MEDS: cefTRIAXone 1,000 mg SDV 1000 MG IVP (20:51)
[2024-09-08 21:25] LABS: Lactic Sepsis W/Reflex 1.1 mmol/L (0.5-2.2)
[2024-09-08] MEDS: AZITHROMYCIN ADD-Vantage 500 MG in 0.9% NaCl ADD-Vantage 250 ML 250 MG IV (21:33)
[2024-09-08] MEDS: atorvastatin 40 mg Tablet PO (22:09)
--- NOTE | 2024-09-08 22:16 | ECG_ITS ---
M-Audio Test Date: 2024-09-09 Pat Name: Nadia Mendez Department: Room: 102 Gender: Female [employer] Coach: : 1955 Requested By: Hiwot Burns Order Number: [id number] Reading MD: DUNG SEN Measurements Intervals [place] Rate: 84 P: 22 MA: 158 QRS: -40 QRSD: 104 T: 173 QT: 432 QTc: 513 Interpretive Statements SINUS RHYTHM POSSIBLE LEFT ATRIAL ENLARGEMENT [-0.1mV P-WAVE IN V1/V2] LEFT AXIS DEVIATION [QRS AXIS < -30] LEFT VENTRICULAR HYPERTROPHY AND ST-T CHANGE [VOLTAGE CRITERIA PLUS ST/T ABNORMALITY] ANTEROSEPTAL MYOCARDIAL INFARCTION , PROBABLY RECENT [40+ ms Q WAVE IN V1-V4] ACUTE NH Compared to ECG 09/08/2024 17:37:14 Sinus tachycardia no longer present ST (T wave) deviation still present Myocardial infarct finding still present Electronically Signed On 09-11-2024 23:22:18 OFFICE MAIL CLERK by DUNG SEN [email or web address]
[2024-09-09] VITALS (9 sets, daily range): BP systolic 92–106; BP diastolic 56–73; PULSE 76–100; RESP 18–23; TEMP 36.4–37.1; O2SAT 93–96
[2024-09-09 00:15] LABS: Troponin 5 6HR 1142 ng/L (0-10); Troponin 5 6HR Delta 148 ng/L (0-12)
[2024-09-09 01:34] LABS: Basophils # 0.1 10^3/uL (0.0-0.1); Basophils % 0.4 %; Eosinophils # 0.1 10^3/uL (0.0-0.8); Eosinophils % 0.7 %; Hematocrit 34.2 % (36-47); Lymphocytes # 1.9 10^3/uL (0.8-4.8); Lymphocytes % 15.3 %; Mean Corpuscular HGB Conc 32.5 g/dL (30-55); Mean Corpuscular Hemoglobin 30.7 pg (27-33); Mean Corpuscular Volume 94.5 fl (85-98); Mean Platelet Volume 10.2 fL (7.4-10.4); Monocytes # 0.8 10^3/uL (0.2-0.9); Monocytes % 6.8 %; Neutrophils # 9.34 10^3/uL (1.8-7.7); Neutrophils % 76.3 %; Nucleated Red Blood Cells % 0 %; Platelet Count 285 10^3/cmm (157-399); Red Blood Count 3.62 10^6/uL (3.85-5.65); Red Cell Distribution Width 14.6 % (12.1-15.1); White Blood Count 12.23 10^3/uL (3.29-11.43)
[2024-09-09 01:47] LABS: Alanine Aminotransferase 34 U/L (0-33); Albumin Level 3.4 g/dL (3.5-5.2); Alkaline Phosphatase 66 U/L (35-105); Anion Gap 16.8 (5-19); Aspartate Amino Transferase 48 U/L (0-32); Blood Urea Nitrogen 18 mg/dL (8-23); Calcium 8.3 mg/dL (8.5-10.5); Carbon Dioxide 21 mmol/L (22-29); Chloride 97 mmol/L (98-107); Creatinine Clr Calc Pharmacy 56.7464; Globulin 2.2 g/dL (1.3-4.6); Glucose 117 mg/dL (65-115); Magnesium 1.9 mg/dL (1.7-2.3); Osmolality Calculated 275 mOsm/kg (285-295); Phosphorus 3.7 mg/dL (2.5-4.5); Potassium 3.8 mmol/L (3.5-5.1); Sodium 131 mmol/L (136-145); Total Bilirubin 0.3 mg/dL (0.15-1.2); Total Protein 5.6 g/dL (6.6-8.7)
[2024-09-09 01:52] LABS: Partial Thromboplastin Time 88.4 SECONDS (23.9-36.7)
[2024-09-09 02:18] LABS: NT Pro B Type Natriuretic Pept 13760 pg/mL (0-125)
[2024-09-09] MEDS: FUROsemide 10 mg/mL SDV 4mL 40 MG IVP ×2 (08:38→20:10)
[2024-09-09] MEDS: aspirin 81 mg EC Tablet PO (08:38)
[2024-09-09] MEDS: carvedilol 3.125 mg Tablet PO (08:38)
--- NOTE | 2024-09-09 10:40 | PC.CHAP ---
Pastoral Care Encounter/Spiritual Assessment Type of Contact [] Declined care aide visit [] Patient/Family/Request visit [] Outpatient visit [] Follow-up visit [] Physician referral [] Code/Alert [x] Routine visit [] Staff referral [] Actively dying [] Patient sleeping [] Family support [] [] Out of room [] Palliative care [] [] Receiving care in room [] Pre-surgical visit [] Trauma [] Long length of stay [] ICU visit [] Other: Relational/Emotional Strength [x] Patient feels connected with others/family/visitors/staff [] Distress [] Loneliness/isolation [] Abandonment Spirituality of Patient [x] Person of Mago [x] Attends Buddhist of their [place] [x] Believes in Prayer [] Reads Bible or Baptist materials [] There are Spiritual issues to be addressed Director Of Science Interventions [x] Prayer [x] Active listening [x] Non-anxious presence [] Spiritual/emotional support [] Crisis/trauma care [] Spiritual counseling [] Bereavement support [] Provided bereavement packet [] Provided Bible/devotional materials [] Provided toy/stuffed animal, coloring book to patient or family member [] Provided Communion [] Anointing/[place] [] Salvation [] Completed spiritual assessment [] Other: Impact on Illness or Injury [] Angry [] Fearful [] Anxious [] Often cries [] Exhaustion [] Unable to work [] Unable to attend lutheran [] Unable to walk/stand [] Unable to read [] Unable to drive [] Unable to eat/drink [] Unable to sleep [] Unable to be with family [] Patient intubated [] Other: Summary Prayer +2 Time spent with patient 15 min
--- NOTE | 2024-09-09 13:25 | P.PN_ITS ---
Subjective 2 Subjective: Patient was seen this morning, reports her shortness of breath has improved, still short of breath with exertion orthopnea is improving, no chest pain overnight Vitals/I&O/Wt Last Vital Signs Temp 98.0 F 09/09/24 11:06 Pulse 76 09/09/24 11:06 Resp 20 H 09/09/24 11:06 BP 92/64 09/09/24 11:06 Pulse Ox 96 09/09/24 11:06 O2 Del Method Room Air 09/09/24 11:06 09/08/24 09/09/24 09/09/24 22:59 06:59 14:59 Intake Total 250 / 250 237.629 / 487.629 373.167 / 373.167 Output Total 1300 / 1300 Balance 250 / 250 -1062.371 / -812.371 373.167 / 373.167 Weight last 48 hrs Weight 70.579 kg Weight 71.242 kg Weight 69.4 kg Physical Exam 2 Const: COMMON NORMALS: no acute distress and patient oriented x3 Resp: COMMON NORMALS: normal respiratory effort, No retractions, No use of accessory muscles and clear to auscultation bilaterally AUSCULTATION: clear to auscultation bilaterally Cardio: COMMON NORMALS: regular rate, regular rhythm, S1 normal heart sound present and S2 normal heart sound present RATE: regular rate RHYTHM: r egular rhythm HEART SOUNDS: S1 normal heart sound present and S2 normal heart sound present GI: COMMON NORMALS: Normal to inspection, nondistended, normoactive bowel sounds present and non-tender Extremity: COMMON NORMALS: no pedal edema Neuro: COMMON NORMALS: patient oriented x3 Psych: COMMON NORMALS: mental status grossly normal Data 09/09/24 01:26 09/09/24 01:26 Micro: Microbiology 09/08/24 17:25 Blood Culture - Preliminary Blood SPECIMEN COLLECTED 09/08/24 17:23 Blood Culture - Preliminary Blood SPECIMEN COLLECTED A&P Assessment and plan (1) NSTEMI (non-ST elevated myocardial infarction): (2) Acute systolic CHF (congestive heart failure): Plan NSTEMI, with acute systolic CHF -Complaints of chest pain, shortness of breath -Concerns for completed infarct versus NSTEMI Stress test September 07, 2024 IMPRESSIONS Large area of fixed perfusion defect noted in mid to distal anterior, basal to mid inferior and basal to distal inferoseptal wall suggestive of old myocardial infarction versus scarring. No new ischemia noted. -Troponin 994, 6-hour 1142 -BNP 16 143 -EKG nonspecific ST-T wave changes in anterior leads, sinus tachycardia Plan -Monitor in cardiac stepdown unit closely -Lasix 80 mg in the emergency room -Continue Lasix 40 IV twice daily -Aspirin 325 followed by 81 mg daily -Atorvastatin 40 mg daily -Coreg 3.125 twice daily -Serial EKGs, short troponins, telemetry monitoring -Monitor for chest pain -Heparin drip -Monitor urine output, monitor creatinine, telemetry monitoring -I cannot see bilateral lung bases on the chest x-ray, does have a cough does have leukocytosis for now I will cover with broad-spectrum antibiotic therapy Rocephin azithromycin for concerns for pneumonia, follow CRP, Pro-Kris, respiratory viral panel, blood culture -Spoke to cardiology, plan on IV diuresis, consider cardiac catheterization in the near future -Spoke to ER provider -Spoke to patient's family, daughters -Full code -Heparin drip for DVT prophylaxis Transaminitis, monitor Attestations 2 Medical Necessity Statement*: Patient requires hospitalization for NSTEMI, acute systolic CHF exacerbation, Diagnoses NSTEMI (non-ST elevated myocardial infarction) I21.4 Acute systolic CHF (congestive heart failure) I50.21
--- NOTE | 2024-09-09 13:50 | P.CONIM_ITS ---
Providers/Reason For Consult 2 Consulting Physician/Specialty*: Dayo Garcia MD Reason for Consult*: Non-ST elevation MA New onset of heart failure Severe LV dysfunction Requesting Physician: Dr. Zuñiga Attending Physician: Darci Pérez MD Primary Care Provider: Gabriela Moya History of Present Illness History of Present Illness Nadia Mendez is a 69 year old female past medical history significant for being postmenopausal otherwise no major medical problem non-smoker nondiabetic was noticing worsening of shortness of breath since Thanksgiving. For the past few days is hard for the patient even to walk to the bathroom and for the last 2 days she was not able to talk in sentences she admits to PND orthopnea therefore she decided to come to the ER she was noted to have sinus rhythm poor R wave progression in the anterior leads suggestive of possible old myocardial infarction. She was ruled in for non-ST elevation MA. Patient categorically denies chest pain. She was noted to be volume overloaded and in acute decompensated heart failure. Patient was started on IV Lasix heparin beta- virgilio statin and aspirin. She started diuresing well and feeling much better. Review of Systems 2 Narrative: Constitutional symptoms: Negative except as documented in HPI. Skin symptoms: Negative except as documented in HPI. Eye symptoms: Negative except as documented in HPI. ENMT symptoms: Negative except as documented in HPI. Respiratory symptoms: Negative except as documented in HPI. Cardiovascular symptoms: Negative except as documented in HPI. Gastrointestinal symptoms: Negative except as documented in HPI. Genitourinary symptoms: Negative except as documented in HPI. Musculoskeletal symptoms: Negative except as documented in HPI. Neurologic symptoms: Negative except as documented in HPI. Psychiatric symptoms: Negative except as documented in HPI. Endocrine symptoms: Negative except as documented in HPI. Const: Denies: fever(s) or chills Eyes: Denies: photophobia Card: Reports: chest pain Resp: Reports: dyspnea GI: Denies: abdominal pain : Denies: flank pain Medications/Allergies Home Medications Medication Instructions Recorded Confirmed Last Taken Type ascorbic acid (vitamin C) 500 mg 500 mg PO DAILY 10/23/19 09/09/24 10/31/19 History capsule cholecalciferol (vitamin D3) 250 20,000 unit PO DAILY 10/23/19 09/09/24 10/31/19 History mcg (10,000 unit) capsule cyanocobalamin (vitamin B-12) 5,000 mcg PO DAILY 10/23/19 09/09/24 10/31/19 History 5,000 mcg capsule lactobacillus combination no.4 3 3,000 mmu cells PO DAILY 11/01/19 09/09/24 10/31/19 History billion cell capsule (Probiotic) Allergies Allergy/AdvReac Type Severity Reaction Status Date / Time No Known Allergies Allergy Verified 09/07/24 09:04 Current Medications Generic Name Dose Route Start Last Admin Trade Name Nicolas PRN Reason Stop Dose Admin Aspirin 81 mg 09/09/24 09:00 09/09/24 08:38 Aspirin 81 Mg Ec Tablet PO 81 mg DAILY BREEZY Administration Atorvastatin Calcium 40 mg 09/08/24 21:00 09/08/24 22:09 Atorvastatin 40 Mg Tablet PO 40 mg BEDTIME BREEZY Administration Carvedilol 3.125 mg 09/08/24 18:35 09/09/24 08:38 Carvedilol 3.125 Mg Tablet PO 3.125 mg BID BREEZY Administration Ceftriaxone Sodium 1,000 mg 09/08/24 18:45 09/08/24 20:51 Ceftriaxone 1,000 Mg Sdv IVP 1,000 mg Q24H BREEZY Administration Protocol Furosemide 40 mg 09/09/24 09:00 09/09/24 08:38 Furosemide 10 Mg/Ml Sdv 4ml IVP 40 mg Q12H BREEZY Administration Azithromycin 500 mg/ Sodium 250 mls @ 250 mls/hr 09/08/24 18:45 09/08/24 22:51 Chloride IV Infused Q24H BREEZY Infusion Protocol Heparin Sodium/Sodium Chloride 25,000 unit in 500 mls @ 0 mls/hr 09/08/24 18:45 09/09/24 10:07 Heparin Drip IV 12.25 unit/kg/hr CONT BREEZY 17 mls/hr Titration Protocol Per Protocol Pantoprazole Sodium 40 mg 09/08/24 18:45 09/08/24 19:02 Pantoprazole 40 Mg Sdv IVP 40 mg Q24H BREEZY Administration PFSH Acute 2 PFSH: Surgical History History of breast biopsy 1995 Benign History of delivery History of tonsillectomy Family History Mother Hyperlipidemia Hypertension Vertigo Social History Smoking and tobacco/nicotine status: never used tobacco/nicotine Alcohol intake: never Substance/Drug Use: never 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 HEART: Regular S1 and S2. No murmur, rub or gallop. LUNGS:Ins crackle bilaterally. CENTRAL NERVOUS SYSTEM: Grossly nonfocal. EXTREMITIES: Lower extremities with out edema bilaterally. Data 09/09/24 01:26 09/09/24 01:26 Micro: Microbiology 09/08/24 17:25 Blood Culture - Preliminary Blood SPECIMEN COLLECTED 09/08/24 17:23 Blood Culture - Preliminary Blood SPECIMEN COLLECTED A&P Assessment and plan (1) Non-ST elevated myocardial infarction: (2) Acute systolic CHF (congestive heart failure): Plan Acute decompensated systolic heart failure new onset Acute severe LV dysfunction Non-ST elevation Plan patient appeared to be in decompensated systolic heart failure agree with IV diuresis continue IV 40 mg p.o. twice daily since patient is Lasix na?ve goal is 1 to 1.5 L negative per day. Once euvolemic will add guideline medical therapy for heart failure and plan for left heart cath/PCI if indicated. Given poor R wave progression in the anterolateral leads possible patient may have LAD lesion or chronically occluded LAD, echocardiogram is suggestive of severely depressed left ventricular ejection fraction below 35% with wall motion abnormality in the anteroseptal and apical segment. Once patient becomes euvolemic proceed with left heart cath/PCI if indicated Continue aspirin statin and heparin heparin Consult Attestations 2 Medical Necessity Statement: I am expecting her stay to cross more than 2 midnights Coding Level of Care Code Acute Code for [facility] Diagnoses Non-ST elevated myocardial infarction I21.4 Acute systolic CHF (congestive heart failure) I50.21
[2024-09-09] MEDS: cefTRIAXone 1,000 mg SDV 1000 MG IVP (18:08)
[2024-09-09] MEDS: AZITHROMYCIN ADD-Vantage 500 MG in 0.9% NaCl ADD-Vantage 250 ML 250 MG IV (18:08)
[2024-09-09] MEDS: pantoprazole 40 mg SDV IVP (18:09)
--- NOTE | 2024-09-09 18:14 | USCV_ITS ---
Nadia Mendez Age: 69 Gender: F : 1955 Exam Date: 09/09/2024 08:13 Ordering Phys: Darci Pérez MD Technologist: Louis Pettit [place] [facility] [place]: sob BP: 128 / 89 HR: 80 Rhythm: Sinus Technical Quality: Adequate MEASUREMENTS (Male / Female) Normal Values 2D ECHO LV Diastolic Diameter PLAX 5.1 cm 4.2 - 5.9 / 3.9 - 5.3 cm IVS Diastolic Thickness 1.2 cm 0.6 - 1.0 / 0.6 - 0.9 cm IVS Systolic Thickness 1.1 cm LVPW Diastolic Thickness 1.5 cm 0.6 - 1.0 / 0.6 - 0.9 cm LVPW Systolic Thickness 1.5 cm LVOT Diameter 2.0 cm LV Ejection Fraction 2D Teich 16.4 % LV Ejection Fraction MOD 4C 32.2 % LV Ejection Fraction MOD 2C 23.8 % LV Ejection Fraction 2C AL 23.3 % LA Diameter 3.7 cm RA Systolic Volume 4C AL 26.1 ml RA Systolic Volume 4C MOD 27.2 ml LA Sys Volume AL 46.5 cm cubed LA Sys Volume Index AL 25.7 cm cubed/m squared Aorta at Sinotubular Diameter 2.2 cm IVC Diameter 1.4 cm M-MODE LA Ao Ratio MM 1.9 AV Cusp Separation MM 1.3 cm DOPPLER AV Peak Velocity 128.0 cm/s LVOT Peak Velocity 81.0 cm/s AV Area Cont Eq vti 2.1 cm squared AV Area Cont Eq pk 2.0 cm squared MV Peak Velocity 141.0 cm/s MV Area PHT 5.1 cm squared Mitral E to A Ratio 1.3 TV Peak Velocity 281.0 cm/s TR Peak Velocity 320.0 cm/s TR Peak Gradient 41.0 mmHg TR Mean Velocity 254.0 cm/s TR Mean Gradient 27.9 mmHg TR Velocity Time Integral 94.8 cm PV Peak Velocity 79.0 cm/s RV Ejection Time 0.3 s FINDINGS Left Ventricle Moderately increased left ventricular cavity size. Severely decreased left ventricular systolic function. Left ventricular ejection fraction is estimated at 23 %. There appeared to be mid to distal anterior and apical akinesis.Grade I/IV diastolic dysfunction (abnormal relaxation filling pattern), normal to mildly elevated filling pressures. Right Ventricle The right ventricle is normal in size and function. Right Atrium The right atrium is normal in size. Left Atrium Moderately increased left atrial size. Mitral Valve Moderate mitral annular calcification. Moderately thickened mitral valve. No mitral valve stenosis. Moderate-severe mitral valve regurgitation. Aortic Valve Structurally normal aortic valve without significant sclerosis or stenosis. There is no aortic regurgitation. Tricuspid Valve Structurally normal tricuspid valve without significant stenosis or regurgitation. Pulmonary artery systolic pressure is normal. Pulmonic Valve Mild pulmonary valve regurgitation. Pericardium Normal pericardium without effusion. Aorta Normal ascending aorta dimension. IVC The inferior vena cava appears normal. CONCLUSIONS Moderately increased left ventricular cavity size. Severely decreased left ventricular systolic function. Left ventricular ejection fraction is estimated at 23 %. There appeared to be mid to distal anterior and apical akinesis.Grade I/IV diastolic dysfunction (abnormal relaxation filling pattern), normal to mildly elevated filling pressures. Moderately increased left atrial size. Moderate mitral annular calcification. Moderately thickened mitral valve. No mitral valve stenosis. Moderate-severe mitral valve regurgitation. Mild pulmonary valve regurgitation. Right atrial pressure is around 5 mm of mercury. Dayo Garcia MD (Electronically Signed) Final Date: 09 September 2024 16:58 S
[2024-09-09] MEDS: atorvastatin 40 mg Tablet PO (20:09)
[2024-09-09 20:55] LABS: Partial Thromboplastin Time 74.5 SECONDS (23.9-36.7)
[2024-09-09] MEDS: heparin drip 25,000 UNIT/500 ML PREMIX 17 UNIT IV (22:43)
[2024-09-10] VITALS (10 sets, daily range): BP systolic 92–123; BP diastolic 65–90; PULSE 81–102; RESP 13–26; TEMP 36.4–37.1; O2SAT 92–97
[2024-09-10 03:01] LABS: Basophils # 0.1 10^3/uL (0.0-0.1); Basophils % 0.7 %; Eosinophils # 0.2 10^3/uL (0.0-0.8); Eosinophils % 1.4 %; Hematocrit 35.9 % (36-47); Lymphocytes # 2.5 10^3/uL (0.8-4.8); Lymphocytes % 22.2 %; Mean Corpuscular Hemoglobin 31.6 pg (27-33); Mean Corpuscular Volume 98.6 fl (85-98); Mean Platelet Volume 10.2 fL (7.4-10.4); Monocytes # 0.9 10^3/uL (0.2-0.9); Monocytes % 7.7 %; Neutrophils % 67.6 %; Nucleated Red Blood Cells % 0 %; Platelet Count 289 10^3/cmm (157-399); Red Blood Count 3.64 10^6/uL (3.85-5.65); Red Cell Distribution Width 14.8 % (12.1-15.1); White Blood Count 11.24 10^3/uL (3.29-11.43)
[2024-09-10 03:17] LABS: Partial Thromboplastin Time 78.7 SECONDS (23.9-36.7)
[2024-09-10 03:19] LABS: Alanine Aminotransferase 54 U/L (0-33); Albumin Level 3.6 g/dL (3.5-5.2); Alkaline Phosphatase 78 U/L (35-105); Anion Gap 17.7 (5-19); Aspartate Amino Transferase 60 U/L (0-32); Blood Urea Nitrogen 22 mg/dL (8-23); Calcium 8.5 mg/dL (8.5-10.5); Carbon Dioxide 21 mmol/L (22-29); Chloride 100 mmol/L (98-107); Creatinine Clr Calc Pharmacy 50.8557; Globulin 2.4 g/dL (1.3-4.6); Glucose 117 mg/dL (65-115); Magnesium 2.1 mg/dL (1.7-2.3); Osmolality Calculated 284 mOsm/kg (285-295); Potassium 3.7 mmol/L (3.5-5.1); Sodium 135 mmol/L (136-145); Total Bilirubin 0.3 mg/dL (0.15-1.2)
[2024-09-10] MEDS: acetaminophen 325 mg Tablet 650 MG PO (03:35)
--- NOTE | 2024-09-10 03:52 | ECG_ITS ---
[employer] Test Date: 2024-09-10 Pat Name: Nadia Mendez Department: Room: 102 Gender: Female Tripper: : 1955 Requested By: Dayo Garcia Order Number: [id number] Reading MD: DAYO GARCIA Measurements Intervals Carbon Rate: 90 P: 50 AR: 161 QRS: 89 QRSD: 105 T: 267 QT: 387 QTc: 476 Interpretive Statements SINUS RHYTHM ANTERIOR MYOCARDIAL INFARCTION , PROBABLY RECENT [40+ ms Q WAVE AND/OR ST/T ABNORMALITY IN V3/V4] ACUTE CA Compared to ECG 09/09/2024 01:04:35 Left-axis deviation no longer present Left ventricular hypertrophy no longer present ST (T wave) deviation no longer present Myocardial infarct finding still present Electronically Signed On 09-11-2024 23:13:53 [employer]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
[2024-09-10 04:29] LABS: Troponin T (5th) Once 1210 ng/L (0-10)
--- NOTE | 2024-09-10 05:31 | PC.NURSE ---
Patient stated chest pressure. EKG ordered and transfered to chart. Dr Kahn notified, 5th gen trop ordered.
[2024-09-10] MEDS: carvedilol 3.125 mg Tablet PO ×2 (08:25→18:08)
[2024-09-10] MEDS: FUROsemide 10 mg/mL SDV 4mL 40 MG IVP ×3 (08:25→20:39)
[2024-09-10] MEDS: aspirin 81 mg EC Tablet PO (08:25)
[2024-09-10 10:01] LABS: Partial Thromboplastin Time 77.5 SECONDS (23.9-36.7)
[2024-09-10] MEDS: metOLazone 5 MG Tablet PO (10:17)
--- NOTE | 2024-09-10 11:54 | PC.NURSE ---
Dr. Garcia ordered to give lasix 40mg TID, starting today, and metolazone 2.5mg BID, starting the metolazone on 09/11/2024. Orders entered.
--- NOTE | 2024-09-10 14:41 | P.PN_ITS ---
Subjective 2 Subjective: Patient was seen this morning, she tells me that she had a difficult night, had episodes of shortness of breath during the night, Vitals/I&O/Wt Last Vital Signs Temp 97.5 F L 09/10/24 12:00 Pulse 81 09/10/24 12:00 Resp 20 H 09/10/24 12:00 BP 93/65 09/10/24 12:00 Pulse Ox 97 09/10/24 12:00 O2 Del Method Room Air 09/10/24 12:00 09/09/24 09/10/24 09/10/24 22:59 06:59 14:59 Intake Total 464.200 / 837.367 584.15 / 1421.517 256.667 / 256.667 Output Total 900 / 2050 400 / 2450 1550 / 1550 Balance -435.800 / -1212.633 184.15 / -1028.483 -1293.333 / -1293.333 Weight last 48 hrs Weight 69.989 kg Weight 70.579 kg Weight 71.242 kg Physical Exam 2 Const: COMMON NORMALS: no acute distress and patient oriented x3 Resp: COMMON NORMALS: normal respiratory effort, No retractions and No use of accessory muscles AUSCULTATION: crackles and wheezes Cardio: COMMON NORMALS: regular rate, regular rhythm, S1 normal heart sound present and S2 normal heart sound present RATE: regular rate RHYTHM: r egular rhythm HEART SOUNDS: S1 normal heart sound present and S2 normal heart sound present GI: COMMON NORMALS: Normal to inspection, nondistended, normoactive bowel sounds present and non-tender Extremity: COMMON NORMALS: no pedal edema Neuro: COMMON NORMALS: patient oriented x3 Psych: COMMON NORMALS: mental status grossly normal Data 09/10/24 02:53 09/10/24 02:53 Micro: Microbiology 09/08/24 17:25 Blood Culture - Preliminary Blood NEGATIVE TO DATE 09/08/24 17:23 Blood Culture - Preliminary Blood NEGATIVE TO DATE A&P Assessment and plan (1) NSTEMI (non-ST elevated myocardial infarction): (2) Acute systolic CHF (congestive heart failure): Plan NSTEMI, with acute systolic CHF -Complaints of chest pain, shortness of breath -Concerns for completed infarct versus NSTEMI Stress test September 07, 2024 IMPRESSIONS Large area of fixed perfusion defect noted in mid to distal anterior, basal to mid inferior and basal to distal inferoseptal wall suggestive of old myocardial infarction versus scarring. No new ischemia noted. -Troponin 994, 6-hour 1142 -BNP 16 143 -EKG nonspecific ST-T wave changes in anterior leads, sinus tachycardia Cardiac echo CONCLUSIONS Moderately increased left ventricular cavity size. Severely decreased left ventricular systolic function. Left ventricular ejection fraction is estimated at 23 %. There appeared to be mid to distal anterior and apical akinesis.Grade I/IV diastolic dysfunction (abnormal relaxation filling pattern), normal to mildly elevated filling pressures. Moderately increased left atrial size. Moderate mitral annular calcification. Moderately thickened mitral valve. No mitral valve stenosis. Moderate-severe mitral valve regurgitation. Mild pulmonary valve regurgitation. Right atrial pressure is around 5 mm of mercury. Plan -Monitor in cardiac stepdown unit closely -Continue Lasix 40 IV twice daily, 1 dose metolazone -Aspirin 325 followed by 81 mg daily -Atorvastatin 40 mg daily -Coreg 3.125 twice daily -Serial EKGs, short troponins, telemetry monitoring -Monitor for chest pain -Heparin drip -Monitor urine output, monitor creatinine, telemetry monitoring -I cannot see bilateral lung bases on the chest x-ray, does have a cough does have leukocytosis for now I will cover with broad-spectrum antibiotic therapy Rocephin azithromycin for concerns for pneumonia, follow CRP, Pro-Kris, respiratory viral panel, blood culture -Spoke to cardiology, plan on IV diuresis, consider cardiac catheterization in the near future -Spoke to ER provider -Spoke to patient's family, daughters -Full code -Heparin drip for DVT prophylaxis Transaminitis, monitor -Potentially congestive hepatopathy related to acute heart failure Attestations 2 Medical Necessity Statement*: Patient requires hospitalization for NSTEMI, acute systolic CHF Diagnoses NSTEMI (non-ST elevated myocardial infarction) I21.4 Acute systolic CHF (congestive heart failure) I50.21
[2024-09-10 16:57] LABS: Partial Thromboplastin Time 58.1 SECONDS (23.9-36.7)
[2024-09-10] MEDS: cefTRIAXone 1,000 mg SDV 1000 MG IVP (18:07)
[2024-09-10] MEDS: AZITHROMYCIN ADD-Vantage 500 MG in 0.9% NaCl ADD-Vantage 250 ML 250 MG IV (18:08)
[2024-09-10] MEDS: pantoprazole 40 mg SDV IVP (18:08)
--- NOTE | 2024-09-10 20:09 | PM.PN ---
Subjective Subjective: Patient did not diurese well still was not able to lay flat she is short of breath. Echocardiogram is consistent with, there is moderate to severe severely depressed ejection fraction 23%, there is moderate to severe mitral valve regurgitation Vitals/I&O/Wt Last Vital Signs Temp 98.7 F 09/10/24 16:00 Pulse 90 09/10/24 16:00 Resp 21 H 09/10/24 16:00 BP 118/81 09/10/24 16:00 Pulse Ox 97 09/10/24 16:00 O2 Del Method Room Air 09/10/24 16:00 09/10/24 09/10/24 09/10/24 06:59 14:59 22:59 Intake Total 584.15 / 1421.517 256.667 / 939.172 5734.25 / 1408.917 Output Total 400 / 2450 1550 / 1550 800 / 2350 Balance 184.15 / -1028.483 -1293.333 / -1293.333 352.25 / -941.083 Weight last 48 hrs Weight 154 lb 4.8 oz Weight 155 lb 9.6 oz Weight 157 lb 1 oz Physical Exam Const: OTHER: GENERAL: Patient is alert, awake and oriented x3. Patient is short of breath HEART: Regular S1 and S2. No murmur, rub or gallop. LUNGS: Basal inspiratory crackle bilaterally. CENTRAL NERVOUS SYSTEM: Grossly nonfocal. EXTREMITIES: Lower extremities with out edema bilaterally. Data 09/10/24 02:53 09/10/24 02:53 Micro: Microbiology 09/08/24 17:25 Blood Culture - Preliminary Blood NEGATIVE TO DATE 09/08/24 17:23 Blood Culture - Preliminary Blood NEGATIVE TO DATE A&P Assessment and plan (1) Non-ST elevated myocardial infarction: (2) Acute systolic CHF (congestive heart failure): Plan Acute decompensated systolic heart failure new onset Acute severe LV dysfunction Non-ST elevation Plan patient appeared to be in decompensated systolic heart failure agree with IV diuresis continue IV 40 mg p.o. twice daily since patient is Lasix na?ve goal is 1 to 1.5 L negative per day. Once euvolemic will add guideline medical therapy for heart failure and plan for left heart cath/PCI if indicated. Given poor R wave progression in the anterolateral leads possible patient may have LAD lesion or chronically occluded LAD, echocardiogram is suggestive of severely depressed left ventricular ejection fraction below 35% with wall motion abnormality in the anteroseptal and apical segment. Once patient becomes euvolemic proceed with left heart cath/PCI if indicated Continue aspirin statin and heparin heparin On today's visit 09/10/2024, patient is short of breath has not diuresed well patient has severely depressed left ventricular ejection fraction 23%, there is basal to mid anterior anteroseptal and apical akinesis consistent with ischemic heart disease continue current management and increase Lasix to 40 3 times daily add metolazone 2.5 mg twice a day. Will continue to monitor urine output Attestations Medical Necessity Statement*: Patient require continuation hospitalization for above defined care. Coding Level of Care Code [facility] Diagnoses Non-ST elevated myocardial infarction I21.4 Acute systolic CHF (congestive heart failure) I50.21
[2024-09-10] MEDS: atorvastatin 40 mg Tablet PO (20:39)
[2024-09-10 23:15] LABS: Partial Thromboplastin Time 57.6 SECONDS (23.9-36.7)
[2024-09-11] VITALS (38 sets, daily range): BP systolic 92–112; BP diastolic 66–74; PULSE 74–95; RESP 15–28; TEMP 36.5–37.2; O2SAT 93–98
[2024-09-11] MEDS: heparin drip 25,000 UNIT/500 ML PREMIX 15 UNIT IV (05:37)
[2024-09-11 05:50] LABS: Basophils # 0.1 10^3/uL (0.0-0.1); Basophils % 0.5 %; Eosinophils # 0.2 10^3/uL (0.0-0.8); Eosinophils % 1.7 %; Hematocrit 37.2 % (36-47); Lymphocytes # 2.4 10^3/uL (0.8-4.8); Lymphocytes % 19.7 %; Mean Corpuscular HGB Conc 33.1 g/dL (30-55); Mean Corpuscular Hemoglobin 30.7 pg (27-33); Mean Corpuscular Volume 92.8 fl (85-98); Mean Platelet Volume 10.5 fL (7.4-10.4); Monocytes # 0.9 10^3/uL (0.2-0.9); Neutrophils # 8.64 10^3/uL (1.8-7.7); Neutrophils % 70.5 %; Nucleated Red Blood Cells % 0 %; Platelet Count 344 10^3/cmm (157-399); Red Blood Count 4.01 10^6/uL (3.85-5.65); Red Cell Distribution Width 14.5 % (12.1-15.1); White Blood Count 12.25 10^3/uL (3.29-11.43)
[2024-09-11 06:04] LABS: Alanine Aminotransferase 48 U/L (0-33); Alkaline Phosphatase 79 U/L (35-105); Anion Gap 19.3 (5-19); Aspartate Amino Transferase 38 U/L (0-32); Blood Urea Nitrogen 30 mg/dL (8-23); Calcium 9.3 mg/dL (8.5-10.5); Carbon Dioxide 25 mmol/L (22-29); Chloride 95 mmol/L (98-107); Creatinine Clr Calc Pharmacy 49.9395; Globulin 2.5 g/dL (1.3-4.6); Glucose 119 mg/dL (65-115); Osmolality Calculated 289 mOsm/kg (285-295); Phosphorus 5.2 mg/dL (2.5-4.5); Potassium 3.3 mmol/L (3.5-5.1); Sodium 136 mmol/L (136-145); Total Bilirubin 0.3 mg/dL (0.15-1.2); Total Protein 6.5 g/dL (6.6-8.7)
--- NOTE | 2024-09-11 08:00 | XACV_ITS ---
Exam Room: 2 Ht: 165 cm Wt: 68 kg BSA: 1.77 m2 Gender: Female : 1955 Any Known Allergies: No known allergies Exam Priority: Routine Procedure(s): Procedure Description: Diagnostic procedure Procedure Description: Left Heart Catheterization Procedure Description: Left ventriculography Procedure Description: Miscellaneous Procedure Description: ACT Procedure Description: Coronary Angiography Jose GENTILE; Diagnostic Cath Status: Elective Diagnostic Findings * Left Anterior Descending has no disease. * Circumflex has no disease. * Left Main: severe 90% stenosis, MARVIN: 3 flow. * Proximal Right Coronary Artery to Mid Right Coronary Artery: total occlusion, MARVIN: 3 flow. * Ramus: severe 90% stenosis, MARVIN: 3 flow. * 1st Diagonal: significant 80% stenosis, MARVIN: 3 flow. * Coronary angiography shows right dominance. PCI Indication: NSTE - ACS Conclusions 1. There is total occlusion coronary artery disease with two vessel disease. 2. The basal posterior, mid posterior, inferobasal, mid inferior aly are akinetic. 3. The apex, anterior, mid septum aly are hypokinetic. 4. Moderate left ventricular systolic dysfunction. Ejection fraction of 30%. Recommendations * 1-Return to [facility] for close monitoring and routine CATH care 2-Continue IV heparin drip as per ACS protocol 3-No Plavix for possible CABG 4-Statin with LDL goal of 70 mg/dl, aspirin 81 mg p.o. daily for life long 5-CT surgery consults for CABG 6-Optimal medical management for [place] 7-Follow up with Dr. Garcia in four weeks and establish care with primary care physician. Interventional RX Recommendation: CABG Diagnostic RX Recommendation: CABG LV EDP: 13 mmHg Ventriculography Ejection Fraction: 30.0 % Pressures Phase:Rest AO : 91 / 56 ( 70 ) @ 12:18:00 PM 100 / 62 ( 78 ) @ 12:26:00 PM 100 / 62 ( 78 ) @ 12:26:00 PM LV : 97 / 4 / 13 @ 12:24:00 PM 105 / -4 / 16 @ 12:25:00 PM 105 / -4 / 17 @ 12:26:00 PM Valves Phase:DefaultPhase AV : 4.0 @ 12:32:31 PM AV Mean Gradient: 12.0 @ 12:32:31 PM Clinical Evaluation EBL: 5mL-10mL Procedural Details Procedure Consent Obtained. Admit Source: In Patient. Pre-Procedure Time Out. Identified patient by full name and date of as verbalized by the patient/guarantor. Does the consent match the physician's order: Yes. Accurate & Complete Informed Consent: Yes. Inpatient/Outpatient History & Physical on Chart: Yes. If H&P is completed, is and addenduem needed: No; If yes, is the addendum complete: N/A. Visualize and Verify Site with Patient/Guarantor: N/A. Relevant Radiology Images available: Yes. The risks, benefits, and alternatives of sedation and/or procedure were discussed by physician. The patient agrees to continue. Procedure started. [facility] Clinical Fraility Score: 3: Managing Well. 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 Chest Pain Symptom Assessment: Typical Angina Symptoms. Correct patient, site and procedure confirmed by cath team. Current diagnosis: NSTEMI, CHF. IV Site on Arrival: 20 gauge in the left anticubital. PERRLA. Strong, equal hand counter tender bilaterally. Lungs clear x 5 lobes. IV Fluids: 0.9% NaCl at KVO. 0 mL infused prior to qc lab technician. Oxygen started at 2liters/min via nasal canula. right radial was prepped with chloroprep then draped in the usual sterile fashion. right groin was prepped with chloroprep then draped in the usual sterile fashion. Baseline sample Acquired. HR: 74 BPM. Physician notified. Physician arrived. Pre Procedural Pulses: right radial was 2+. Pre Procedural Pulses: bilateral dorsalis pedis was Doppled. Pre Procedural Pulses: bilateral posterior tibial was Doppled. Physician scrubbed in. Immediate Pre-Procedure Time Out. Correct Patient: Yes; Correct Procedure: Yes; Correct Site: Yes; Correct Patient Position: Yes; Correct Supplies: Yes; Dried Flammable Prep: Yes; Blood Products Available: No;. Lidocaine 1% infiltrated to the right radial. Arterial access obtained. ACT drawn. Results 142 seconds. Therapeutic limits - pre-heparin administration 90-150 seconds and monitoring heparin during a vascular procedure >250 seconds. A 5 english Ignacio catheter in over wire. Multiple views taken of left coronary artery. Catheter redirected to the RCA. View taken of right coronary artery. Catheter removed over the exchange wire. A 5 english Angled Pig catheter in over wire. EDP Sample taken: LV 97/4,13; HR: 80 BPM; SpO2: 92%. LV gram performed in NOGUEIRA @ 10 mL/second for a total of 30 mL. EDP Sample taken: LV 105/-5,16; HR: 80 BPM; SpO2: 92%. Pullback taken: LV 105/-5,17; AO 100/62(78); Mean: 12mmHg, Peak to Peak: 4mmHg, SEP: 7sec/min; HR: 81 BPM; SpO2: 92%. Catheter removed over the exchange wire. Physician scrubbed out. A TR Band was successful obtaining hemostatsis at the Right Radial artery insertion site. Post Procedure: Pulses reassessed and unchanged. PERRLA. Strong, equal hand counter tender bilaterally. No VTE prophylaxis required. Medication's Wasted: Lidocaine 1% = 18 mL. Medication's Wasted: Nitro = 49.8 mg. Medication's Wasted: Heparin = 1000 unit. Medication's Wasted: Other = Fentanyl 75mcg, Versed 1 mg. Total IV fluids: 30 mL. Post-op diagnosis: Critical Left main stenosis, CHF, Depressed EF, Multi-vessel CAD. Complications: None. Estimated blood loss: 5mL-10mL. Responsiveness - Normal response to verbal stimuli; alert and oriented, PERRLA. Airway - Unaffected, no intervention required; spontaneous ventilation. Nausea/Vomiting: No. Procedure completed. Patient transferred by bed to 1st floor. Vital chart was stopped. Access Site Site: Right Radial artery Sheath Size: 6 Fr Hemostasis Method: TR Band Hemostasis Success: Successful Procedure Medications Start: 12:05 PM Stop: 12:05 PM Medication: Versed 1 mg and Fentanyl 25 mcg Route: I.V. Start: 12:05 PM Stop: 12:05 PM Medication: Diphendryamine Amount: 25 mg Route: I.V. Start: 12:16 PM Stop: 12:16 PM Medication: Nitrogylcerin Amount: 200 mcg Route: I.A. Start: 12:22 PM Stop: 12:22 PM Medication: Heparin Amount: 5000 units Route: I.V. I, the attending physician, have reviewed and verified all procedure medications. Yes, all medications given per verbal order History/Risk Factors Hypertension: No Dyslipidemia: No Peripheral Arterial Disease (PAD): No Myocardial Infarction ([place]): No Obesity: No Renal Disease: No Tobacco Use: Never Prior Interventions PCI: No CABG: No Valve Surgery: No Report Signatures Finalized by Dayo Garcia MD on 09/13/2024 08:46 AM
[2024-09-11] MEDS: metOLazone 5 MG Tablet 2.5 MG PO (08:31)
[2024-09-11] MEDS: carvedilol 3.125 mg Tablet PO ×2 (08:32→16:41)
[2024-09-11] MEDS: FUROsemide 10 mg/mL SDV 4mL 40 MG IVP ×2 (08:32→15:40)
[2024-09-11] MEDS: aspirin 81 mg EC Tablet PO (08:32)
[2024-09-11] MEDS: potassium chloride ER 20 mEq Tablet 40 MEQ PO (10:39)
--- NOTE | 2024-09-11 11:42 | PC.SOCIAL ---
IMM Update pg 2 of IMM Updated and reviewed w/ patient. Copy provided and copy dated, initialed and placed in chart.
--- NOTE | 2024-09-11 11:54 | PC.NURSE ---
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
--- NOTE | 2024-09-11 12:05 | W.PM.OPSUD ---
Surgery/Procedure H&P Update DATE OF PROCEDURE: September 11, 2024 DATE H&P PERFORMED: 09/09/24 H&P UPDATE INFORMATION: I have reviewed H&P completed within last 30 days, I have examined patient prior to procedure and No changes to prior documentation PREOP DIAGNOSIS: Non-STEMI, CHF new onset of heart failure PRIMARY INDICATION FOR PROCEDURE: Left heart cath/PCI of PATIENT REASSESSED PRIOR TO SEDATION, WITH NO CHANGE NOTED: Yes PHYSICAL EXAM: alert, oriented x 3, clear to auscultation bilaterally, regular rate & rhythm and operative site marked AIRWAY EVAL/ANESTHESIA PLAN: ASA II, Risks, benefits & alternatives of sedation and/or procedure discussed and Patient agrees to continue as planned
[2024-09-11 12:08] LABS: Glucose Point of Care 110 mg/dL (70-110)
--- NOTE | 2024-09-11 12:52 | P.PCN_ITS ---
Procedure Note: Date of procedure: 09/11/24 Pre-procedure diagnosis: Non- STEMI, CHF Procedure: Left heart cath #1 left main has distal 90 to 95% stenosis #2 LAD has luminal irregularity without significant stenosis, diagonal and luminal irregularity without significant stenosis #3 left circumflex has luminal irregularity without significant #4 RCA is 100% chronically occluded it appeared to be possible nondominant vessel Left ventricle ejection fraction by ventriculography is severely depressed less than 35% with global hypokinesis Left ventricular end-diastolic pressure is normal 13 mm Hg Recommend: CABG Continue aspirin statin beta-virgilio Will reduce Lasix to 40 mg IV twice daily Patient and family will decide where they would like to go for the CABG will have meeting with them tonight further plan will advise accordingly. Full note to be dictated Coding Level of Care Code Acute Code for [facility]
--- NOTE | 2024-09-11 13:04 | PC.NURSE ---
Patient returned to unit from cath [id number].
--- NOTE | 2024-09-11 15:58 | P.PN_ITS ---
Subjective 2 Subjective: Patient was seen this morning, she is sitting up in bed, no acute events overnight no fevers, chills, no cough no chest pain Vitals/I&O/Wt Last Vital Signs Temp 98.9 F 09/11/24 07:14 Pulse 84 09/11/24 14:00 Resp 16 09/11/24 07:14 BP 95/68 09/11/24 12:43 Pulse Ox 98 09/11/24 12:43 O2 Del Method Room Air 09/11/24 12:43 09/11/24 09/11/24 09/11/24 06:59 14:59 22:59 Intake Total 187 / 1595.917 120 / 120 Output Total 1000 / 4750 850 / 850 Balance -813 / -3154.083 120 / 120 -850 / -730 Weight last 48 hrs Weight 67.767 kg Weight 69.989 kg Physical Exam 2 Const: COMMON NORMALS: no acute distress and patient oriented x3 Resp: COMMON NORMALS: normal respiratory effort, No retractions, No use of accessory muscles and clear to auscultation bilaterally AUSCULTATION: clear to auscultation bilaterally Cardio: COMMON NORMALS: regular rate, regular rhythm, S1 normal heart sound present and S2 normal heart sound present RATE: regular rate RHYTHM: r egular rhythm HEART SOUNDS: S1 normal heart sound present and S2 normal heart sound present GI: COMMON NORMALS: Normal to inspection, nondistended, normoactive bowel sounds present and non-tender Extremity: COMMON NORMALS: no pedal edema Neuro: COMMON NORMALS: patient oriented x3 and moves all extremities Psych: COMMON NORMALS: mental status grossly normal Data 09/11/24 05:00 09/11/24 05:00 A&P Assessment and plan (1) NSTEMI (non-ST elevated myocardial infarction): (2) Acute systolic CHF (congestive heart failure): Plan NSTEMI, with acute systolic CHF -Complaints of chest pain, shortness of breath -Concerns for completed infarct versus NSTEMI Stress test September 07, 2024 IMPRESSIONS Large area of fixed perfusion defect noted in mid to distal anterior, basal to mid inferior and basal to distal inferoseptal wall suggestive of old myocardial infarction versus scarring. No new ischemia noted. -Troponin 994, 6-hour 1142 -BNP 16 143 -EKG nonspecific ST-T wave changes in anterior leads, sinus tachycardia Cardiac echo CONCLUSIONS Moderately increased left ventricular cavity size. Severely decreased left ventricular systolic function. Left ventricular ejection fraction is estimated at 23 %. There appeared to be mid to distal anterior and apical akinesis.Grade I/IV diastolic dysfunction (abnormal relaxation filling pattern), normal to mildly elevated filling pressures. Moderately increased left atrial size. Moderate mitral annular calcification. Moderately thickened mitral valve. No mitral valve stenosis. Moderate-severe mitral valve regurgitation. Mild pulmonary valve regurgitation. Right atrial pressure is around 5 mm of mercury. Plan -Monitor in cardiac stepdown unit closely -Continue Lasix 40 IV twice daily, metolazone -Aspirin 325 followed by 81 mg daily -Atorvastatin 40 mg daily -Coreg 3.125 twice daily -Serial EKGs, short troponins, telemetry monitoring -Monitor for chest pain -Heparin drip -Monitor urine output, monitor creatinine, telemetry monitoring -De-escalate to Augmentin -Spoke to ER provider -Spoke to patient's family, daughters -Full code -Heparin drip for DVT prophylaxis Transaminitis, monitor -Potentially congestive hepatopathy related to acute heart failure Attestations 2 Medical Necessity Statement*: Patient requires hospitalization for NSTEMI, CHF exacerbation, proceeding with cardiac cath Diagnoses NSTEMI (non-ST elevated myocardial infarction) I21.4 Acute systolic CHF (congestive heart failure) I50.21
[2024-09-11] MEDS: amoxicillin-clav 875-125 mg Tablet 1 TAB PO (16:41)
--- NOTE | 2024-09-11 19:24 | P.PN_ITS ---
Subjective 2 Subjective: Patient underwent left heart catheterization noted to have high-grade 95% distal left main stenosis and chronically occluded RCA, coronary artery bypass surgery was recommended. Patient would like to go to [place], overall doing fine denies chest pain shortness of breath is improved after diuresis. Vitals/I&O/Wt Last Vital Signs Temp 97.9 F 09/11/24 16:00 Pulse 87 09/11/24 16:00 Resp 28 H 09/11/24 16:00 BP 92/66 09/11/24 16:00 Pulse Ox 96 09/11/24 16:00 O2 Del Method Room Air 09/11/24 16:00 09/11/24 09/11/24 09/11/24 06:59 14:59 22:59 Intake Total 187 / 1595.917 120 / 120 240 / 360 Output Total 1000 / 4750 1200 / 1200 Balance -813 / -3154.083 120 / 120 -960 / -840 Weight last 48 hrs Weight 149 lb 6.4 oz Weight 154 lb 4.8 oz Physical Exam 2 Const: COMMON NORMALS: alert OTHER: GENERAL: Patient is alert, awake and oriented x3. HEART: Regular S1 and S2. No murmur, rub or gallop. LUNGS: Clear to auscultate bilaterally. CENTRAL NERVOUS SYSTEM: Grossly nonfocal. EXTREMITIES: Lower extremities with out edema bilaterally. Resp: COMMON NORMALS: clear to auscultation bilaterally AUSCULTATION: clear to auscultation bilaterally Neuro: SENSORIUM/ORIENTATION: Yes alert Data 09/11/24 05:00 09/11/24 05:00 A&P Assessment and plan (1) Non-ST elevated myocardial infarction: (2) Acute systolic CHF (congestive heart failure): Plan Acute decompensated systolic heart failure new onset Acute severe LV dysfunction Non-ST elevation Plan patient appeared to be in decompensated systolic heart failure agree with IV diuresis continue IV 40 mg p.o. twice daily since patient is Lasix na?ve goal is 1 to 1.5 L negative per day. Once euvolemic will add guideline medical therapy for heart failure and plan for left heart cath/PCI if indicated. Given poor R wave progression in the anterolateral leads possible patient may have LAD lesion or chronically occluded LAD, echocardiogram is suggestive of severely depressed left ventricular ejection fraction below 35% with wall motion abnormality in the anteroseptal and apical segment. Once patient becomes euvolemic proceed with left heart cath/PCI if indicated Continue aspirin statin and heparin heparin On today's visit 09/10/2024, patient is short of breath has not diuresed well patient has severely depressed left ventricular ejection fraction 23%, there is basal to mid anterior anteroseptal and apical akinesis consistent with ischemic heart disease continue current management and increase Lasix to 40 3 times daily add metolazone 2.5 mg twice a day. Will continue to monitor urine output On today's visit dated 09/11/2024 patient underwent left heart cath noted to have distal left main and chronically occluded RCA, patient was advised CABG, will refer her to [place] as patient and family would like to go there. Continue aspirin and statin beta-virgilio, will switch to p.o. Lasix 40 mg once a day. Attestations 2 Medical Necessity Statement*: Patient require continuation hospitalization for above defined care. Coding Level of Care Code Acute Code for [facility] Diagnoses Non-ST elevated myocardial infarction I21.4 Acute systolic CHF (congestive heart failure) I50.21
[2024-09-11] MEDS: pantoprazole 40 mg SDV IVP (20:55)
[2024-09-11] MEDS: atorvastatin 40 mg Tablet PO (20:55)
[2024-09-12] VITALS (25 sets, daily range): BP systolic 101–110; BP diastolic 63–73; PULSE 73–91; RESP 2–23; TEMP 36.1–37.5; O2SAT 95–96
[2024-09-12 04:50] LABS: Basophils # 0.1 10^3/uL (0.0-0.1); Basophils % 0.5 %; Eosinophils # 0.3 10^3/uL (0.0-0.8); Eosinophils % 1.8 %; Hematocrit 38.6 % (36-47); Lymphocytes # 2.2 10^3/uL (0.8-4.8); Lymphocytes % 15.6 %; Mean Corpuscular HGB Conc 33.4 g/dL (30-55); Mean Corpuscular Hemoglobin 30.7 pg (27-33); Mean Corpuscular Volume 91.9 fl (85-98); Mean Platelet Volume 10.3 fL (7.4-10.4); Monocytes # 1.1 10^3/uL (0.2-0.9); Monocytes % 8.1 %; Neutrophils # 10.28 10^3/uL (1.8-7.7); Neutrophils % 73.5 %; Nucleated Red Blood Cells % 0 %; Platelet Count 372 10^3/cmm (157-399); Red Cell Distribution Width 14.5 % (12.1-15.1); White Blood Count 13.99 10^3/uL (3.29-11.43)
[2024-09-12 05:19] LABS: Anion Gap 21.8 (5-19); Blood Urea Nitrogen 33 mg/dL (8-23); Calcium 9.4 mg/dL (8.5-10.5); Carbon Dioxide 24 mmol/L (22-29); Chloride 93 mmol/L (98-107); Creatinine Clr Calc Pharmacy 41.6162; Glucose 117 mg/dL (65-115); Osmolality Calculated 288 mOsm/kg (285-295); Potassium 3.8 mmol/L (3.5-5.1); Sodium 135 mmol/L (136-145)
[2024-09-12 05:22] LABS: NT Pro B Type Natriuretic Pept 5216 pg/mL (0-125)
[2024-09-12] MEDS: amoxicillin-clav 875-125 mg Tablet 1 TAB PO ×2 (08:33→17:46)
[2024-09-12] MEDS: FUROsemide 40 mg Tablet PO (08:33)
[2024-09-12] MEDS: aspirin 81 mg EC Tablet PO (08:34)
[2024-09-12] MEDS: carvedilol 3.125 mg Tablet PO ×2 (08:34→17:46)
--- NOTE | 2024-09-12 10:34 | P.PN_ITS ---
<Statement entered by Dayo Garcia MD - 09/13/24 00:57> Patient was evaluated and cared for in conjunction with an advanced practice practitioner. I personally examined the patient and reviewed the chart and all pertinent data including imaging, telemetry, and laboratory results. I discussed the patient in detail with the advanced practice practitioner. Please see their note for complete H&P testing result and agreed upon plan of care for the patient. GENERAL: Patient is alert, awake and oriented x3. HEART: Regular S1 and S2. No murmur, rub or gallop. LUNGS: Clear to auscultate bilaterally. CENTRAL NERVOUS SYSTEM: Grossly nonfocal. EXTREMITIES: Lower extremities with out edema bilaterally. Assessment and plan Non-ST elevation IN Acute decompensated systolic heart failure new onset Distal significant left main disease Patient has been switched to p.o. Lasix continue aspirin statin beta-virgilio lisinopril Patient has been accepted at [facility] with Dr. Salmeron for CT surgery, awaiting bed. Subjective 2 Subjective: She is sitting up in bed feeling much better, shortness of breath is improved. She has not had any chest pain. She appears euvolemic. Plan is to transfer to [place] for recommended CABG, currently looking for bed placement. Blood pressure well-controlled without hypotension. Vitals/I&O/Wt Last Vital Signs Temp 98.2 F 09/12/24 07:05 Pulse 87 09/12/24 07:05 Resp 16 09/12/24 07:05 BP 110/69 09/12/24 07:05 Pulse Ox 95 09/12/24 07:05 O2 Del Method Room Air 09/12/24 07:05 09/11/24 09/12/24 09/12/24 22:59 06:59 14:59 Intake Total 240 / 360 Output Total 1200 / 1600 400 / 1600 Balance -960 / -1240 -400 / -1240 Weight last 48 hrs Weight 149 lb 6.4 oz Weight 149 lb 6.4 oz Physical Exam 2 Const: COMMON NORMALS: no acute distress and patient oriented x3 GENERAL APPEARANCE: cooperative and comfortable ORIENTATION/CONSCIOUSNESS: Yes awake, Yes oriented to person, Yes oriented to place and Yes oriented to time Chest: COMMONS NORMALS: normal inspection of the chest and normal palpation of entire chest wall CHEST: Yes Symmetrical chest wall rise Resp: COMMON NORMALS: normal respiratory effort, No retractions, No use of accessory muscles and clear to auscultation bilaterally EFFORT & INSPECTION: Yes symmetric chest movement AUSCULTATION: clear to auscultation bilaterally Cardio: COMMON NORMALS: regular rate, regular rhythm, S1 normal heart sound present, S2 normal heart sound present, No gallops present (Cardio), No clicks present (Cardio), No murmurs present (Cardio) and No rub (Cardio) RATE: r egular rate RHYTHM: regular rhythm HEART SOUNDS: S1 normal heart sound present and S2 normal heart sound present PERIPHERAL PULSES: radial pulses present Extremity: COMMON NORMALS: no pedal edema Neuro: COMMON NORMALS: patient oriented x3 and moves all extremities S ENSORIUM/ORIENTATION: Yes oriented to person, Yes oriented to place and Yes oriented to time Data 09/12/24 03:59 09/12/24 03:59 A&P Assessment and plan (1) NSTEMI (non-ST elevated myocardial infarction): (2) Acute systolic CHF (congestive heart failure): Plan Plan patient appeared to be in decompensated systolic heart failure agree with IV diuresis continue IV 40 mg p.o. twice daily since patient is Lasix na?ve goal is 1 to 1.5 L negative per day. Once euvolemic will add guideline medical therapy for heart failure and plan for left heart cath/PCI if indicated. Given poor R wave progression in the anterolateral leads possible patient may have LAD lesion or chronically occluded LAD, echocardiogram is suggestive of severely depressed left ventricular ejection fraction below 35% with wall motion abnormality in the anteroseptal and apical segment. Once patient becomes euvolemic proceed with left heart cath/PCI if indicated Continue aspirin statin and heparin heparin On today's visit 09/10/2024, patient is short of breath has not diuresed well patient has severely depressed left ventricular ejection fraction 23%, there is basal to mid anterior anteroseptal and apical akinesis consistent with ischemic heart disease continue current management and increase Lasix to 40 3 times daily add metolazone 2.5 mg twice a day. Will continue to monitor urine output On today's visit dated 09/11/2024 patient underwent left heart cath noted to have distal left main and chronically occluded RCA, patient was advised CABG, will refer her to [place] as patient and family would like to go there. Continue aspirin and statin beta-virgilio, will switch to p.o. Lasix 40 mg once a day. 09/12/2024: Awaiting transfer to [place] for possible CABG, appears euvolemic on Lasix 40 mg daily and blood pressure well-controlled. She is 1 L negative today, cumulative 6 L negative. Continue aspirin, carvedilol, atorvastatin. Attestations 2 Medical Necessity Statement*: Heart failure therapy, plan for transfer for CABG Coding Level of Care Code Acute Code for [facility] Diagnoses NSTEMI (non-ST elevated myocardial infarction) I21.4 Acute systolic CHF (congestive heart failure) I50.21
--- NOTE | 2024-09-12 13:47 | P.PN_ITS ---
Subjective 2 Subjective: Patient was seen this morning, denies any shortness of breath, no chest pain Vitals/I&O/Wt Last Vital Signs Temp 97.6 F 09/12/24 10:59 Pulse 90 09/12/24 10:59 Resp 10 L 09/12/24 10:59 BP 110/72 09/12/24 10:59 Pulse Ox 96 09/12/24 10:59 O2 Del Method Room Air 09/12/24 10:59 09/11/24 09/12/24 09/12/24 22:59 06:59 14:59 Intake Total 240 / 425.75 480 / 480 Output Total 1200 / 1200 400 / 1600 Balance -960 / -774.25 -400 / -1174.25 480 / 480 Weight last 48 hrs Weight 67.767 kg Weight 67.767 kg Physical Exam 2 Const: COMMON NORMALS: no acute distress and patient oriented x3 Resp: COMMON NORMALS: normal respiratory effort, No retractions, No use of accessory muscles and clear to auscultation bilaterally AUSCULTATION: clear to auscultation bilaterally Cardio: COMMON NORMALS: regular rate, regular rhythm, S1 normal heart sound present and S2 normal heart sound present RATE: regular rate RHYTHM: r egular rhythm HEART SOUNDS: S1 normal heart sound present and S2 normal heart sound present GI: COMMON NORMALS: Normal to inspection, nondistended, normoactive bowel sounds present and non-tender Extremity: COMMON NORMALS: no pedal edema Neuro: COMMON NORMALS: patient oriented x3 Psych: COMMON NORMALS: mental status grossly normal Data 09/12/24 03:59 09/12/24 03:59 A&P Assessment and plan (1) NSTEMI (non-ST elevated myocardial infarction): (2) Acute systolic CHF (congestive heart failure): Plan NSTEMI, with acute systolic CHF -Complaints of chest pain, shortness of breath -Concerns for completed infarct versus NSTEMI Stress test September 07, 2024 IMPRESSIONS Large area of fixed perfusion defect noted in mid to distal anterior, basal to mid inferior and basal to distal inferoseptal wall suggestive of old myocardial infarction versus scarring. No new ischemia noted. -Troponin 994, 6-hour 1142 -BNP 16 143 -EKG nonspecific ST-T wave changes in anterior leads, sinus tachycardia Cardiac echo CONCLUSIONS Moderately increased left ventricular cavity size. Severely decreased left ventricular systolic function. Left ventricular ejection fraction is estimated at 23 %. There appeared to be mid to distal anterior and apical akinesis.Grade I/IV diastolic dysfunction (abnormal relaxation filling pattern), normal to mildly elevated filling pressures. Moderately increased left atrial size. Moderate mitral annular calcification. Moderately thickened mitral valve. No mitral valve stenosis. Moderate-severe mitral valve regurgitation. Mild pulmonary valve regurgitation. Right atrial pressure is around 5 mm of mercury. -Left heart cath, Left heart cath #1 left main has distal 90 to 95% stenosis #2 LAD has luminal irregularity without significant stenosis, diagonal and luminal irregularity without significant stenosis #3 left circumflex has luminal irregularity without significant #4 RCA is 100% chronically occluded it appeared to be possible nondominant vessel Left ventricle ejection fraction by ventriculography is severely depressed less than 35% with global hypokinesis Left ventricular end-diastolic pressure is normal 13 mm Hg Recommend: CABG Plan -Monitor in cardiac stepdown unit closely -Continue Lasix 40 daily -Aspirin 81 mg daily -Atorvastatin 40 mg daily -Coreg 3.125 twice daily -Serial EKGs, short troponins, telemetry monitoring -Monitor for chest pain -Heparin -Monitor urine output, monitor creatinine, telemetry monitoring -De-escalate to Augmentin -Awaiting discussion with tertiary level center for consideration of CABG -Full code -Heparin DVT prophylaxis Transaminitis, monitor -Potentially congestive hepatopathy related to acute heart failure Attestations 2 Medical Necessity Statement*: Patient requires hospitalization for CAD, requiring evaluation of CABG, CHF requiring diuresis Diagnoses NSTEMI (non-ST elevated myocardial infarction) I21.4 Acute systolic CHF (congestive heart failure) I50.21
--- NOTE | 2024-09-12 14:09 | PC.NURSE ---
Verified with Dr. Garcia the heparin drip order. Per Dr. Garcia the heparin drip was to be discontinued after shift lab technician on Wednesday (09/11/2024).
[2024-09-12] MEDS: heparin 5,000 unit/mL INJ 1 mL 5000 UNIT SUBCUT (14:37)
--- NOTE | 2024-09-12 18:00 | PC.NURSE ---
Patient up and ambulated the hallway and back to her room, 300 feet total. Vitals remained stable and no chest pain or shortness of breath.
[2024-09-12] MEDS: pantoprazole 40 mg SDV IVP (20:30)
--- NOTE | 2024-09-12 23:25 | ECG_ITS ---
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 Measurements Intervals [place] Rate: 93 P: -11 WV: 167 QRS: -43 QRSD: 110 T: 156 QT: 399 QTc: 498 Interpretive Statements SINUS RHYTHM WITH OCCASIONAL VENTRICULAR PREMATURE COMPLEXES LEFT AXIS DEVIATION [QRS AXIS < -30] LEFT VENTRICULAR HYPERTROPHY AND ST-T CHANGE [VOLTAGE CRITERIA PLUS ST/T ABNORMALITY] ANTERIOR MYOCARDIAL INFARCTION , AGE INDETERMINATE Compared to ECG 09/10/2024 03:52:21 Ventricular premature complex(es) now present Left-axis deviation now present Left ventricular hypertrophy now present ST (T wave) deviation now present Myocardial infarct finding still present Electronically Signed On 09-16-2024 23:15:42 SCRATCHER TENDER by Collins Sawyer M.D. [id number]
[2024-09-13] VITALS (19 sets, daily range): BP systolic 90–101; BP diastolic 58–81; PULSE 73–96; RESP 16–25; TEMP 36.3–37.2; O2SAT 91–98; BMI 23.6
--- NOTE | 2024-09-13 01:04 | ECG_ITS ---
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 Measurements Intervals [place] Rate: 92 P: 22 WI: 140 QRS: -20 QRSD: 112 T: 177 QT: 382 QTc: 473 Interpretive Statements SINUS RHYTHM MODERATE INTRAVENTRICULAR CONDUCTION DELAY [110+ ms QRS DURATION] MARKED ST DEPRESSION Compared to ECG 09/12/2024 23:25:42 Intraventricular conduction delay now present Ventricular premature complex(es) no longer present Left-axis deviation no longer present Left ventricular hypertrophy no longer present Myocardial infarct finding no longer present ST (T wave) deviation still present Electronically Signed On 09-16-2024 23:35:12 TELEVISION INSPECTOR by Collins Sawyer M.D. [id number]
[2024-09-13 01:06] LABS: Basophils # 0.1 10^3/uL (0.0-0.1); Basophils % 0.5 %; Eosinophils # 0.2 10^3/uL (0.0-0.8); Eosinophils % 1.7 %; Hematocrit 39.9 % (36-47); Lymphocytes # 2.1 10^3/uL (0.8-4.8); Lymphocytes % 18.2 %; Mean Corpuscular HGB Conc 33.8 g/dL (30-55); Mean Corpuscular Hemoglobin 31.1 pg (27-33); Mean Corpuscular Volume 91.9 fl (85-98); Mean Platelet Volume 9.9 fL (7.4-10.4); Monocytes # 0.7 10^3/uL (0.2-0.9); Monocytes % 6.4 %; Neutrophils # 8.29 10^3/uL (1.8-7.7); Neutrophils % 72.6 %; Nucleated Red Blood Cells % 0 %; Platelet Count 352 10^3/cmm (157-399); Red Blood Count 4.34 10^6/uL (3.85-5.65); Red Cell Distribution Width 14.3 % (12.1-15.1); White Blood Count 11.42 10^3/uL (3.29-11.43)
--- NOTE | 2024-09-13 01:08 | PM.MISC ---
Miscellaneous Note Note: Was called around 11pm that the patient had one minute of Vfib/Vtach, but she was asymptomatic and sleeping and converted herself out of it. Uriel Moy was called at 12: 54am. The patient was in Vifb and required defibrillation w/ ROSC. 300mg Amiodarone bolus x 1 was given in addition to starting an Amiodarone drip. She was also given 2g of Magnesium. A CXR was done and she will be transferred to the ICU. I consulted the Director Of Video Analytics on-call about initiating immediate transfer to [facility], since contact had been made earlier in the day. The Director Of Video Analytics was in agreement so [facility] was contacted she was accepted to [facility] ICU under Dr. Navarrete.
[2024-09-13] MEDS: ondansetron 2 mg/ML SDV 2 mL 4 MG IVP (01:10)
--- NOTE | 2024-09-13 01:10 | XRR_ITS ---
PROCEDURE INFORMATION: Exam: XR Chest Exam date and time: 09/13/2024 1:10 AM Age: 69 years old Clinical indication: Injury or trauma; Other: Code; Blunt trauma (contusions or hematomas); Additional info: Code blue - ventricular fibrillation TECHNIQUE: Imaging protocol: Radiologic exam of the chest. Views: 1 view. COMPARISON: CR (CHEST, ) 09/08/2024 6:03 PM FINDINGS: Lungs: Unremarkable. No consolidation. Pleural spaces: Unremarkable. No pleural effusion. No pneumothorax. Heart/Mediastinum: Stable cardiomegaly. Vasculature: Calcific plaque involves the aortic knob. Bones/joints: No definitive displaced rib fracture. XR/XR chest 1V portable [id number] IMPRESSION: No acute abnormality. Cardiomegaly.
[2024-09-13 01:14] LABS: Glucose Point of Care 177 mg/dL (70-110)
[2024-09-13 01:21] LABS: INR 0.96 (0.8-1.2); Partial Thromboplastin Time 25.4 SECONDS (23.9-36.7)
[2024-09-13 01:29] LABS: Lactate (Lactic Acid level) 3.2 mmol/L (0.5-2.2)
[2024-09-13 01:30] LABS: Alanine Aminotransferase 144 U/L (0-33); Albumin Level 3.9 g/dL (3.5-5.2); Alkaline Phosphatase 87 U/L (35-105); Aspartate Amino Transferase 140 U/L (0-32); Blood Urea Nitrogen 41 mg/dL (8-23); Calcium 9.4 mg/dL (8.5-10.5); Carbon Dioxide 23 mmol/L (22-29); Chloride 93 mmol/L (98-107); Creatinine Clr Calc Pharmacy 35.6711; Globulin 3.1 g/dL (1.3-4.6); Glucose 179 mg/dL (65-115); Magnesium 2.2 mg/dL (1.7-2.3); Osmolality Calculated 293 mOsm/kg (285-295); Phosphorus 5.6 mg/dL (2.5-4.5); Sodium 134 mmol/L (136-145); Total Bilirubin 0.5 mg/dL (0.15-1.2)
[2024-09-13 01:36] LABS: NT Pro B Type Natriuretic Pept 6536 pg/mL (0-125)
[2024-09-13 01:37] LABS: Anion Gap 21.4 (5-19); Potassium 3.4 mmol/L (3.5-5.1); Troponin T (5th) Once 1589 ng/L (0-10)
[2024-09-13 01:38] LABS: Ionized Calcium 1.1 mmol/L (1.1-1.4)
[2024-09-13] MEDS: prochlorperazine 10 mg/2 mL Inj IVP (01:57)
--- NOTE | 2024-09-13 02:12 | PC.NURSE ---
Patient had a 1 minute run of run of V. Tach at approximately 2300 (see chart). Asymptomatic. Patient converted back to sinus rhythm, EKG obtained. Hospitalist made aware, no new orders given at that time.
--- NOTE | 2024-09-13 02:16 | PC.NURSE ---
Patient went into pulseless V. Fib at 0053. Code blue called. Compressions started, defib x1, and the pulse was regained. EKG, CXR, and labs all obtained. Emesis x1. Given verbal orders by Dr. Mena for 300mg Amiodarone IVP, 2 grams Magnesium Sulfate IVP, Amiodarone GTT, 4mg Zofran. Patient was transferred to ICU. Report given to JAQUELINE Ayala at bedside.
--- NOTE | 2024-09-13 04:08 | PC.NURSE ---
Report called to [facility] Neuro Trauma unit, Kevyn Rae RN. Patient to go to ICU 5.
--- NOTE | 2024-09-13 04:11 | PC.NURSE ---
Dr. Jimenez gave verbal orders to D/C heparin and start lovenox 60mg Q12h
[2024-09-13] MEDS: enoxaparin 100 mg/mL Syringe 60 MG SUBCUT (04:35)
== END 2024-09-13 05:15 | disposition short-term general hospital (02) | DRG 280 ==
LOC: ER 17:37 → CSU 20:03 → ICU 09-13 01:27
PROVIDERS: Internal Medicine; Internal Medicine Cardiovascular Disease; Admitting Provider Family Medicine; Emergency Provider Emergency Medicine; PCP Nurse Practitioner Family; Visit Provider Family Medicine
PROC: 4A023N7 Measurement of Cardiac Sampling and Pressure, Left Heart, Percutaneous Approach (ICD-10-PCS; principal; 2024-09-11 12:00)
DX: I21.4 Non-ST elevation (NSTEMI) myocardial infarction (principal); I50.23 Acute on chronic systolic (congestive) heart failure; I47.20 Ventricular tachycardia, unspecified; R74.01 Elevation of levels of liver transaminase levels; I34.0 Nonrheumatic mitral (valve) insufficiency; I25.10 Atherosclerotic heart disease of native coronary artery without angina pectoris
CPT/HCPCS: 36415; 36416; 62270; 71045; 80048; 80053; 80061; 80503; 81001; 82040; 82042; 82248; 82330; 82784; 82945; 82962; 83036; 83605; 83735; 83880; 83916; 84100; 84145; 84157; 84443; 84484; 85025; 85347; 85610; 85730; 86140; 86592; 86617; 87040; 87070; 87075; 87205; 87486; 87581; 87633; 89050; 93005; 93306; 93458; 94664; 96372; 96374; 96375; 96376; 99152; 99153; 99213; 99285; A9270; C1769; C1887; C1894; J0283; J0456; J0696; J0780; J1200; J1644; J1650; J1940; J2250; J2405; J2470; J3010; J3490; J7030; J7050; Q9967

== ENCOUNTER → 2024-12-05 15:50 | Outpatient (BNVA) | payer MEDICARE, OTHER, SELFPAY | PROVIDERS: PCP Nurse Practitioner Family; Visit Provider Internal Medicine Cardiovascular Disease | DX: I50.9 Heart failure, unspecified (principal) | CPT/HCPCS: 36415; 80048; 85025 ==

== ENCOUNTER 2025-01-12 09:32 | Outpatient (CLI) | payer MEDICARE, OTHER, SELFPAY ==
--- NOTE | 2025-01-12 10:00 | USCV_ITS ---
Nadia Mendez Age: 69 Gender: F : 1955 Exam Date: 01/12/2025 09:49 Ordering Phys: Dayo Garcia MD ([email or web address]) Technologist: Louis Pettit Exam Location: [facility] [place] Indication: CAD, SOB, CABG BP: 126 / 80 HR: 77 Rhythm: Sinus Technical Quality: Adequate MEASUREMENTS (Male / Female) Normal Values 2D ECHO LV Diastolic Diameter PLAX 4.6 cm 4.2 - 5.9 / 3.9 - 5.3 cm IVS Diastolic Thickness 1.1 cm 0.6 - 1.0 / 0.6 - 0.9 cm IVS Systolic Thickness 1.0 cm LVPW Diastolic Thickness 1.5 cm 0.6 - 1.0 / 0.6 - 0.9 cm LVPW Systolic Thickness 1.8 cm LVOT Diameter 2.0 cm LV Ejection Fraction 2D Teich 26.9 % LV Ejection Fraction MOD 4C 36.3 % LV Ejection Fraction MOD 2C 33.0 % LV Ejection Fraction 2C AL 33.1 % LA Diameter 3.1 cm RA Systolic Volume 4C AL 37.5 ml RA Systolic Volume 4C MOD 37.0 ml LA Sys Volume AL 45.7 cm cubed LA Sys Volume Index AL 26.8 cm cubed/m squared Aorta at Sinotubular Diameter 2.1 cm IVC Diameter 1.5 cm M-MODE LA Ao Ratio MM 1.4 AV Cusp Separation MM 1.4 cm DOPPLER AV Peak Velocity 141.7 cm/s LVOT Peak Velocity 75.0 cm/s AV Area Cont Eq vti 1.5 cm squared AV Area Cont Eq pk 1.7 cm squared MV Peak Velocity 96.0 cm/s MV Area PHT 3.9 cm squared Mitral E to A Ratio 0.7 TV Peak Velocity 217.0 cm/s TR Peak Velocity 242.0 cm/s TR Peak Gradient 23.4 mmHg TR Mean Velocity 178.0 cm/s TR Mean Gradient 14.1 mmHg TR Velocity Time Integral 66.5 cm PV Peak Velocity 76.0 cm/s RV Ejection Time 0.3 s FINDINGS Left Ventricle Moderately increased left ventricular cavity size. Left ventricular ejection fraction is estimated at 30-35 %. There appeared to be anterior septal and apical severe hypokinesis and possible apical akinesis suggestive of ischemic heart disease.Grade I/IV diastolic dysfunction (abnormal relaxation filling pattern), normal to mildly elevated filling pressures. Right Ventricle Catheter/pacemaker wire visualized in the right ventricle. Normal right ventricular size. Right Atrium The right atrium is normal in size. Left Atrium Moderately increased left atrial size. Mitral Valve Mildly thickened mitral valve. No mitral valve stenosis. Trace mitral valve regurgitation. Aortic Valve Mild aortic valve calcification. No aortic valve stenosis. Trace aortic valve regurgitation. Tricuspid Valve Structurally normal tricuspid valve without significant stenosis or regurgitation. Pulmonary artery systolic pressure is normal. Pulmonic Valve Structurally normal pulmonic valve without significant stenosis. There is no pulmonic regurgitation. Pericardium Normal pericardium without effusion. Aorta Normal ascending aorta dimension. IVC The inferior vena cava appears normal. CONCLUSIONS Moderately increased left ventricular cavity size. Left ventricular ejection fraction is estimated at 30-35 %. There appeared to be anterior septal and apical severe hypokinesis and possible apical akinesis suggestive of ischemic heart disease.Grade I/IV diastolic dysfunction (abnormal relaxation filling pattern), normal to mildly elevated filling pressures. Catheter/pacemaker wire visualized in the right ventricle. Normal right ventricular size. Moderately increased left atrial size. There is no pericardial effusion. Right atrial pressure is around 5 mm of mercury. Dayo Garcia MD (Electronically Signed) Final Date: 14 Jan 2025 15:48 S
== END 2025-01-12 09:33 | disposition home or self-care (01) ==
LOC: RAD 09:33
PROVIDERS: PCP Nurse Practitioner Family; Visit Provider Internal Medicine Cardiovascular Disease
DX: I25.10 Atherosclerotic heart disease of native coronary artery without angina pectoris (principal); R06.02 Shortness of breath; Z95.1 Presence of aortocoronary bypass graft; R93.1 Abnormal findings on diagnostic imaging of heart and coronary circulation; Z96.89 Presence of other specified functional implants; I05.9 Rheumatic mitral valve disease, unspecified; I35.8 Other nonrheumatic aortic valve disorders
CPT/HCPCS: 93306

== ENCOUNTER → 2025-03-06 08:20 | Outpatient (BNVA) | payer MEDICARE, OTHER, SELFPAY | PROVIDERS: PCP Nurse Practitioner Family; Visit Provider Nurse Practitioner Family | DX: I50.22 Chronic systolic (congestive) heart failure (principal); I25.10 Atherosclerotic heart disease of native coronary artery without angina pectoris; Z79.82 Long term (current) use of aspirin; Z95.1 Presence of aortocoronary bypass graft | CPT/HCPCS: 99213 ==

== ENCOUNTER → 2025-08-06 10:25 | Outpatient (BNVA) | payer MEDICARE, OTHER, SELFPAY | PROVIDERS: PCP Nurse Practitioner Family; Visit Provider Internal Medicine Cardiovascular Disease | DX: I25.5 Ischemic cardiomyopathy (principal); Z95.1 Presence of aortocoronary bypass graft; R93.1 Abnormal findings on diagnostic imaging of heart and coronary circulation; I50.9 Heart failure, unspecified; I20.0 Unstable angina | CPT/HCPCS: 99214 ==